=== PATIENT | female | born 1950 | race Caucasian/White ===

== ENCOUNTER 2020-05-20 00:44 | Outpatient (CLI) | payer MEDICARE, SELFPAY ==
[2020-05-20 18:34] LABS: SARS-CoV-2 RNA PCR Negative
== END 2020-05-20 00:45 | disposition home or self-care (01) ==
PROVIDERS: Visit Provider Internal Medicine Gastroenterology
DX: Z01.812 Encounter for preprocedural laboratory examination (principal); Z20.828 Contact with and (suspected) exposure to other viral communicable diseases
CPT/HCPCS: 87635; C9803; U0003

== ENCOUNTER → 2020-05-20 08:46 | Outpatient (CLI) | payer MEDICARE, SELFPAY ==
--- NOTE | ~2020-05-20 | US_ITS ---
EXAMINATION: US right upper quadrant DATE: 05/20/2020 09:05 INDICATION: Abnormal liver function tests. TECHNIQUE: Multiple grayscale and Doppler ultrasound images of the abdomen were obtained. COMPARISON: None FINDINGS: The visualized portions of the head, body, and tail of the pancreas are normal. There is a 1.6 cm cyst in the liver. No liver surface nodularity. There is normal flow in main portal vein. The gallbladder is normal in size. No gallstones or gallbladder wall thickening. There was no sonographic [place] sign. The common duct is normal and measures 5 mm. IMPRESSION: 1. No etiology for abnormal liver function tests. Reviewed, dictated and finalized at location B.
== END ==
PROVIDERS: PCP Internal Medicine; Visit Provider Internal Medicine
DX: R74.8 Abnormal levels of other serum enzymes (principal)
CPT/HCPCS: 76705

== ENCOUNTER 2020-05-23 01:25 | Day surgery (SDC) | payer MEDICARE, SELFPAY ==
[2020-05-20 07:32] VITALS: BMI 30.2
--- NOTE | 2020-05-23 06:51 | WPDANESEPPF ---
Anes - Initial Pre Proc Eval Procedure: Operation Date: 05/23/20 08:30 Proposed Procedures p Screening Colonoscopy - Tin Sanz MD Date/Time: 05/23/20 06:51 Surgeon: Tin Sanz MD Pre Op Diagnosis: neoplasm screening Patient Data Age: 69 Gender: F Height: 1.73 m Weight: 90 kg Allergies Allergy/AdvReac Type Severity Reaction Status Date / Time No Known Allergies Allergy Unknown Verified 05/23/20 07:33 Home Medications Medication Instructions Recorded Confirmed Type atorvastatin 10 mg PO DAILY 05/20/20 05/23/20 History hydrochlorothiazide 12.5 mg PO DAILY 05/20/20 05/23/20 History losartan 25 mg PO DAILY 05/20/20 05/23/20 History Patient hx anesthesia problems: none Family hx anesthesia problems: none [facility] Past Medical History Medical History (Updated 05/23/20 @ 07:57 by Tin Sanz MD) GERD (gastroesophageal reflux disease) HTN (hypertension) Hypercholesterolemia Obesity Surgical History Surgical History (Updated 05/23/20 @ 07:57 by Tin Sanz MD) History of appendectomy Status post bunionectomy Status post total hysterectomy and bilateral salpingo-oophorectomy Anes - Eval Final PreProcedure Day of Procedure 05/23/20 06:51 Patient weight: obese Heart: regular rate and rhythm Lungs: clear to auscultation and normal air movement Airway: Mallampati scale class II Neurological: alert and oriented Last oral intake: >/= 8 hours ASA classification: III Emergent: no Anesthetic plan: proceed Anesthesia type and monitoring: general GIVS Informed Consent: The patient's anesthetic plan and its attendant risks and benefits were discussed with the patient/family/POA. Questions were solicited and answers provided to the satisfaction of the patient/family/POA.
[2020-05-23 07:36] VITALS: BP 153/73; PULSE 83; RESP 18; TEMP 36.5; O2SAT 99
[2020-05-23] MEDS: LACTATED RINGERS 1,000 ML 150 ML IV CONT (07:53)
--- NOTE | 2020-05-23 07:55 | P.HP_ITS ---
History of Present Illness History of Present Illness Consent: Risks, benefits, and alternatives have been discussed and questions answered. Patient agrees to proceed with procedure. Chief complaint: neoplasm screening Narrative: Grecia Albert is a 69 year old W female referred for screening colonoscopy secondary positive colo guard test. Patient had a colonoscopy over 10 years ago which was negative at that time. Patient is asymptomatic and there is no family history of colon polyps or colon cancer. [facility] Past Medical History Medical History (Updated 05/23/20 @ 07:57 by Tin Sanz MD) GERD (gastroesophageal reflux disease) HTN (hypertension) Hypercholesterolemia Obesity Surgical History Surgical History (Updated 05/23/20 @ 07:57 by Tin Sanz MD) History of appendectomy Status post bunionectomy Status post total hysterectomy and bilateral salpingo-oophorectomy Meds Home Medications and Allergies Home Medications Medication Instructions Recorded Confirmed Type atorvastatin 10 mg PO DAILY 05/20/20 05/23/20 History hydrochlorothiazide 12.5 mg PO DAILY 05/20/20 05/23/20 History losartan 25 mg PO DAILY 05/20/20 05/23/20 History Allergies Allergy/AdvReac Type Severity Reaction Status Date / Time No Known Allergies Allergy Unknown Verified 05/23/20 07:33 Vital Signs Vital Signs - 24 hr 05/23/20 07:36 Temperature 36.5 C Pulse Rate 83 Respiratory Rate 18 Blood Pressure 153/73 H Pulse Oximetry 99 Exam 2 Const: Orientation/consciousness: patient oriented x3 Resp: Auscultation: clear to auscultation bilaterally Cardio: Rate: regular rate Rhythm: regular rhythm Heart sounds: no murmurs GI: GI Palp: Yes Soft to palpation, No Tenderness to palpation present (GI), Yes No hepatosplenomegaly present and No Palpable mass present Auscultation: normal bowel sounds Neuro: General: patient oriented x3 and no focal motor deficits Extrem: General: no pedal edema Assessment and Plan Additional Plan colonoscopy secondary positive colo guard test
[2020-05-23 08:57] VITALS: BP 100/69; PULSE 67; RESP 18; O2SAT 96
[2020-05-23 09:07] VITALS: BP 135/61; PULSE 63; RESP 20; O2SAT 98
[2020-05-23 09:17] VITALS: BP 128/75; RESP 18; O2SAT 99
== END 2020-05-23 09:48 | disposition home or self-care (01) ==
PROVIDERS: PCP Internal Medicine; Visit Provider Internal Medicine Gastroenterology
PROC: 0DJD8ZZ Inspection of Lower Intestinal Tract, Via Natural or Artificial Opening Endoscopic (ICD-10-PCS; CPT 45378; principal; 2020-05-23 08:30)
DX: D12.5 Benign neoplasm of sigmoid colon (principal); D17.5 Benign lipomatous neoplasm of intra-abdominal organs; I10 Essential (primary) hypertension; E78.5 Hyperlipidemia, unspecified; K21.9 Gastro-esophageal reflux disease without esophagitis; E66.9 Obesity, unspecified; Z68.31 Body mass index [BMI] 31.0-31.9, adult; Z79.899 Other long term (current) drug therapy
CPT/HCPCS: 45385; 45380; 88305; J2704; J7120

== ENCOUNTER → 2020-11-26 05:52 | Outpatient (CLI) | payer MEDICARE, SELFPAY ==
[2020-11-26 19:11] LABS: SARS-CoV-2 RNA PCR Negative
== END ==
PROVIDERS: PCP Internal Medicine; Visit Provider Internal Medicine Gastroenterology
DX: Z01.812 Encounter for preprocedural laboratory examination (principal); Z20.822 Contact with and (suspected) exposure to COVID-19
CPT/HCPCS: C9803; U0003; U0005

== ENCOUNTER 2020-11-30 01:17 | Day surgery (SDC) | payer MEDICARE, SELFPAY ==
[2020-11-17 12:56] VITALS: BMI 30.2
[2020-11-30 07:12] VITALS: BP 151/85; PULSE 82; RESP 18; TEMP 36.1; O2SAT 96; BMI 33.1
[2020-11-30] MEDS: LACTATED RINGERS 1,000 ML 150 ML IV CONT (07:26)
--- NOTE | 2020-11-30 08:14 | WPDANESEPPF ---
Anes - Initial Pre Proc Eval Procedure: Operation Date: 11/30/20 08:30 Proposed Procedures p Esophagogastroduodenoscopy - Boris Go MD Date/Time: 11/30/20 08:14 Surgeon: Boris Go MD Pre Op Diagnosis: Gerd Patient Data Age: 70 Gender: F Height: 5 ft 8 in Weight: 98.8 kg Last Vital Signs Temp 97 F L 11/30/20 07:12 Pulse 82 11/30/20 07:12 Resp 18 11/30/20 07:12 BP 151/85 H 11/30/20 07:12 Pulse Ox 96 11/30/20 07:12 Allergies Allergy/AdvReac Type Severity Reaction Status Date / Time No Known Allergies Allergy Unknown Verified 11/30/20 07:11 Home Medications Medication Instructions Recorded Confirmed Type atorvastatin 10 mg PO DAILY 05/20/20 11/17/20 History hydrochlorothiazide 12.5 mg PO DAILY 05/20/20 11/17/20 History Adults Multivitamin 1 tab-cap PO DAILY 11/17/20 11/17/20 History losartan 25 mg PO DAILY 11/17/20 11/17/20 History omeprazole 20 mg PO Q48H 11/17/20 11/17/20 History Patient hx anesthesia problems: none Family hx anesthesia problems: none PMFSH Past Medical History Medical History (Updated 05/23/20 @ 07:57 by Tin SanzMD) GERD (gastroesophageal reflux disease) HTN (hypertension) Hypercholesterolemia Obesity Surgical History Surgical History (Updated 05/23/20 @ 07:57 by Tin SanzMD) History of appendectomy Status post bunionectomy Status post total hysterectomy and bilateral salpingo-oophorectomy Social History Social History Smoking status: Never smoker Alcohol intake: current Substance use: never Substance use type: does not use Living arrangements: with family Spiritual care concerns: No Anes - Eval Final PreProcedure Day of Procedure 11/30/20 08:14 Patient weight: obese Heart: regular rate and rhythm Lungs: clear to auscultation Airway: Mallampati scale Last oral intake: >/= 8 hours ASA classification: III Emergent: no Anesthetic plan: proceed Anesthesia type and monitoring: general GIVS and standard monitoring Informed Consent: The patient's anesthetic plan and its attendant risks and benefits were discussed with the patient/family/POA. Questions were solicited and answers provided to the satisfaction of the patient/family/POA.
--- NOTE | 2020-11-30 08:33 | PM.HPGS ---
History of Present Illness History of Present Illness Consent: Risks, benefits, and alternatives have been discussed and questions answered. Patient agrees to proceed with procedure. Chief complaint: Gerd Narrative: Grecia Albert is a 70 year old female with gerd which is controlled with omeprazole, had egd but years ago Review of Systems Constitutional: Constitutional: Denies headache(s) and Denies weakness Eyes: Eyes: Denies blurry vision ENT: Reports Normal hearing present, Denies headache(s) and Denies neck pain Cardiovascular: Cardiovascular: Denies chest pain and Denies dyspnea Respiratory: Respiratory: Denies dyspnea Gastrointestinal: Gastrointestinal: Reports no additional gastrointestinal complaints Genitourinary: Genitourinary: Denies dysuria Musculoskeletal: Musculoskeletal: Denies neck pain Integumentary/Breasts: Skin/Breast: Denies dry skin Neurologic: Reports Normal hearing present, Denies headache(s) and Denies weakness Psychiatric: Psychiatric: Denies anxiety Endocrine: Endocrine: Denies change in body appearance Hematologic/Lymphatic: Hematologic/Lymphatic: Denies easy bleeding Allergic/Immunologic: Allergic/Immunologic: Denies urticaria PMFSH Past Medical History Medical History (Updated 11/30/20 @ 08:34 by Boris Go MD) GERD (gastroesophageal reflux disease) HTN (hypertension) Hypercholesterolemia Obesity Surgical History Surgical History (Updated 05/23/20 @ 07:57 by Tin SanzMD) History of appendectomy Status post bunionectomy Status post total hysterectomy and bilateral salpingo-oophorectomy Social History Social History Smoking status: Never smoker Alcohol intake: current Substance use: never Substance use type: does not use Living arrangements: with family Spiritual care concerns: No Meds Home Medications and Allergies Home Medications Medication Instructions Recorded Confirmed Type atorvastatin 10 mg PO DAILY 05/20/20 11/17/20 History hydrochlorothiazide 12.5 mg PO DAILY 05/20/20 11/17/20 History Adults Multivitamin 1 tab-cap PO DAILY 11/17/20 11/17/20 History losartan 25 mg PO DAILY 11/17/20 11/17/20 History omeprazole 20 mg PO Q48H 11/17/20 11/17/20 History Allergies Allergy/AdvReac Type Severity Reaction Status Date / Time No Known Allergies Allergy Unknown Verified 11/30/20 07:11 Vital Signs Vital Signs - 24 hr 11/30/20 07:12 Temperature 97 F L Pulse Rate 82 Respiratory Rate 18 Blood Pressure 151/85 H Pulse Oximetry 96 Exam Const: General: comfortable and no acute distress HENMT: General nose exam: Normal nares present Eyes: General: appearance normal, both eyes and all related structures Neck: Neck: no JVD Resp: Auscultation: clear to auscultation bilaterally Cardio: Rate: regular rate Rhythm: regular rhythm GI: Inspection: non-distended GI Palp: Yes Soft to palpation Skin: General skin exam: normal color Neuro: General: gait normal Speech: normal speech Extrem: General: normal to inspection Psych: Mental Status: mental status grossly normal Assessment and Plan Assessment and plan (1) GERD (gastroesophageal reflux disease): Code(s): K21.9 - Gastro-esophageal reflux disease without esophagitis Status: Acute Assessment and Plan: proceed with egd and bx
[2020-11-30] MEDS: BENZOCAINE (*SP) 60 ML SPRAY CAN (HURRICAINE) 1 SPRAY MUCOUS MEM (08:37)
[2020-11-30 08:47] VITALS: BP 134/78; PULSE 77; RESP 20; O2SAT 93
[2020-11-30 08:57] VITALS: BP 127/75; PULSE 74; RESP 20; O2SAT 94
[2020-11-30 09:07] VITALS: BP 141/80; PULSE 78; RESP 20; O2SAT 96
== END 2020-11-30 09:22 | disposition home or self-care (01) ==
PROVIDERS: PCP Internal Medicine; Visit Provider Internal Medicine Gastroenterology
PROC: 0DJ08ZZ Inspection of Upper Intestinal Tract, Via Natural or Artificial Opening Endoscopic (ICD-10-PCS; CPT 43235; principal; 2020-11-30 08:30)
DX: K21.9 Gastro-esophageal reflux disease without esophagitis (principal); K44.9 Diaphragmatic hernia without obstruction or gangrene; K31.7 Polyp of stomach and duodenum; I10 Essential (primary) hypertension; E78.00 Pure hypercholesterolemia, unspecified; E66.9 Obesity, unspecified; Z90.49 Acquired absence of other specified parts of digestive tract; Z90.710 Acquired absence of both cervix and uterus
CPT/HCPCS: 43239; 88305; C9803; J2704; J7120; U0003; U0005

== ENCOUNTER 2022-08-24 22:09 | Emergency (ER) | payer MEDICARE, SELFPAY ==
--- NOTE | ~2022-08-24 | CT_ITS ---
EXAMINATION: CT abdomen pelvis wo con DATE: 08/24/2022 22:57 INDICATION: Left flank pain TECHNIQUE: Computed tomography (CT) of the abdomen and pelvis was performed without intravenous contr ast. The dose-length product (DLP) was 1031.37 mGy-cm. Automated exposure control and iterative recon struction technique were employed. COMPARISON: None FINDINGS: Minimal dependent atelectasis is present in the lung bases. The heart size is normal. A 1.8 cm area of hypoattenuation adjacent to the gallbladder fossa likely represents focal fatty infiltrat ion of the liver. The spleen, pancreas, gallbladder, and adrenal glands are normal. The right kidney is unremarkable. A 12 mm hyperattenuating lesion is present in the left kidney upper pole. There is h yperattenuating material in an adjacent upper pole calyx of the left kidney and the in left renal pel vis. There is a 1.5 cm cyst of the left kidney. There also appears to be hyperattenuating material in the distal left ureter. No pathologically enlarged abdominal or pelvic lymph nodes are identified. T here is no free intraperitoneal gas or evidence of bowel obstruction. IMPRESSION: 1. 12 mm hyperattenuating lesion in the left kidney upper pole with hyperattenuation in and adjacent calyx of the left kidney, in the left renal pelvis, and in the distal left ureter. Finding could refl ect small renal neoplasm with hemorrhage. Further evaluation with contrast-enhanced CT or MRI is tori mmended. Reviewed, dictated and finalized at location F. E [employer]NAGER IMPRESSION: 1. 12 mm hyperattenuating lesion in the left kidney upper pole with hyperattenu ation in and adjacent calyx of the left kidney, in the left renal pelvis, and i n the distal left ureter. Finding could reflect small renal neoplasm with hemor rhage. Further evaluation with contrast-enhanced CT or MRI is recommended.
--- NOTE | ~2022-08-24 | CT_ITS ---
EXAMINATION: CT abdomen pelvis wo/w con DATE: 08/25/2022 00:21 INDICATION: Indeterminate lesion at the upper pole of the left kidney TECHNIQUE: Computed tomography (CT) of the abdomen and pelvis was performed without and with 100 mL O mnipaque-350 intravenous contrast. Automated exposure control and iterative reconstruction technique were employed. The dose-length product was 2289.51 mGy-cm. COMPARISON: 08/24/2022 FINDINGS: Mild atelectasis at the bilateral lower lungs. Heart size is normal. No pericardial or pleural effusi on. Small sliding-type hiatal hernia. Diffuse hepatic steatosis with focal sparing along the gallblad malena fossa. 1.7 cm low attenuation cyst in segment 4B of the liver. Gallbladder, pancreas, spleen, rig ht kidney and bilateral adrenal glands are normal. 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 1.4 cm nonenhancing exophytic cyst at the lower pole of the left kid jagruti. There is mild left hydroureteronephrosis with mildly delayed left nephrogram. No urolithiasis. T here is nonenhancing high attenuation material in the left renal collecting system and renal pelvis m ost likely representing clot. Additional high attenuation material within the distalmost left ureter which is too small to assess for enhancement which could represent additional clot although enhancing neoplasm cannot be excluded. There are few sigmoid diverticula without adjacent inflammatory strandi ng to suggest diverticulitis. The appendix is not visualized. No pericecal inflammatory change to sug gest acute appendicitis. No bowel obstruction. Small fat-containing umbilical hernia. Bladder is norm al. The uterus is not identified and has likely been surgically resected. No free intraperitoneal gas or fluid. No pathologically enlarged abdominal or pelvic lymphadenopathy. Mild scattered degenerativ e skeletal changes. IMPRESSION: 1. Mild left hydroureteronephrosis without urolithiasis. High attenuation nonenhancing material in th e left renal collecting system consistent with clot. Additional high attenuation material at the dist al left ureter 2 small to assess for enhancement which could represent additional clot or potentially obstructing neoplasm. Correlate with urinalysis and consider urology consultation for cystoscopy and ureteroscopy. Reviewed, dictated and finalized at location A. TAMPER IMPRESSION: 1. Mild left hydroureteronephrosis without urolithiasis. High attenuation nonen hancing material in the left renal collecting system consistent with clot. Arron tional high attenuation material at the distal left ureter 2 small to assess fo r enhancement which could represent additional clot or potentially obstructing neoplasm. Correlate with urinalysis and consider urology consultation for cysto scopy and ureteroscopy.
[2022-08-24 22:10] VITALS: BP 155/75; PULSE 95; RESP 16; TEMP 36.2; O2SAT 95
[2022-08-24 22:33] LABS: Basophils Absolute Auto 0.1 K/mm3 (0.0-0.1); Basophils Percent Auto 0.5 % (0.2-1.2); Eosinophils Absolute Auto 0.2 K/mm3 (0-0.3); Eosinophils Percent Auto 1.4 % (0-4.4); Hematocrit 37.5 % (37.0-47.0); Hemoglobin 12.3 g/dL (12.0-15.0); Immature Granulocyte Absolute 0.05 K/mm3 (0.00-0.031); Immature Granulocyte Percent A 0.4 % (0-0.5); Lymphocytes Absolute Auto 1.45 K/mm3 (0.9-3.2); Lymphocytes Percent Auto 11.5 % (18.3-44.2); Mean Corpuscular HGB Conc 32.8 g/dl (32-36); Mean Corpuscular Hemoglobin 31.6 pg (26-34); Mean Corpuscular Volume 96.4 fl (80-100); Mean Platelet Volume 11.5 fl (7.4-10.4); Monocytes Percent Auto 7.9 % (2.6-8.5); Neutrophils Absolute Auto 9.9 K/mm3 (1.3-6.7); Neutrophils Percent Auto 78.3 % (45.5-73.1); Platelet Count Result 216 k/mm3 (150-375); Red Blood Count 3.89 M/mm3 (4.2-5.4); Red Cell Distribution Width 13.1 % (11.5-14.5); White Blood Count 12.6 K/mm3 (4.5-10.0)
[2022-08-24 22:35] VITALS: BP 149/70; PULSE 81; O2SAT 100
[2022-08-24 22:36] VITALS: BP 149/70; PULSE 82; RESP 16; TEMP 36.9; O2SAT 97
[2022-08-24 22:47] LABS: Alanine Aminotransferase 40 U/L (6-35); Albumin Level 4.7 g/dL (3.5-5.1); Alkaline Phosphatase 92 U/L (38-126); Anion Gap 16 mmol/L (8-16); Aspartate Amino Transferase 40 U/L (14-36); Bilirubin,Total 0.4 mg/dL (0.2-1.3); Blood Urea Nitrogen 27 mg/dL (7-17); Calcium 9.6 mg/dL (8.4-10.2); Carbon Dioxide 24 mmol/L (22-30); Chloride 100 mmol/L (98-107); Estimated CRCL calculation 49 ml/min; Estimated Glomerular Filt Rate 49; Glucose 167 mg/dL (65-110); Sodium 140 mmol/L (137-145)
[2022-08-24 22:58] LABS: RBC Urine >75 /hpf (0-2); Squamous Epithelial Cell Urine Few /hpf (Few); WBC Urine 16-20 /hpf
[2022-08-24] MEDS: MORPHINE SULFATE (*CRX) 4 MG/ML INJ IV PUSH (23:01)
[2022-08-24] MEDS: SODIUM CHLORIDE 0.9% IV 1,000 ML 999 ML IV CONT (23:01)
[2022-08-24] MEDS: ONDANSETRON INJ 4 MG/2 ML VIAL IV PUSH (23:01)
[2022-08-24 23:04] LABS: Appearance Urine Clear (Clear); Bilirubin Urine Negative (Negative); Blood Urine 3+ (Negative); Glucose Urine UA Negative (Negative); Ketones Urine Negative (Negative); Leukocyte Esterase Ur Negative LEU/UL (Negative); Nitrate Urine Negative (Negative); Protein Urine 1+ mg/dL (Negative); Specific Grav Ur 1.015 (1.001-1.035); Urobilinogen Urine 0.2 mg/dL (<2.0)
[2022-08-24 23:12] LABS: Add Urine Microscopic? YES; Color Urine Light Red (Yellow)
[2022-08-24 23:17] LABS: INR 1.1; Prothrombin Time 13.9 Seconds (11.1-14.7)
[2022-08-24 23:18] LABS: Partial Thromboplastin Time 29.5 SECONDS (22.3-36.8)
--- NOTE | 2022-08-24 23:22 | ED.GENADULT ---
HPI - General Adult General Chief complaint: Urogenital-Female Stated complaint: blood in urine Time Seen by Provider: 08/24/22 22:36 History of Present Illness HPI narrative: Patient is a 72-year-old female presents with a chief complaint of left flank pain dysuria. Patient reports that yesterday she started noticing loss of blood in the urine and is also noticed some small clots in the urine. Patient reports to follow primary care providers regarding culture and also started her on Bactrim. Patient states that the pain is aching-like pain reports is not improved by anything nor is it worsened by anything. Patient reports that she is on Eliquis for atrial fibrillation Related Data Home Medications Medication Instructions Recorded Confirmed atorvastatin 10 mg tablet 10 mg PO DAILY 05/20/20 11/17/20 hydrochlorothiazide 12.5 mg capsule 12.5 mg PO DAILY 05/20/20 11/17/20 Adults Multivitamin 1 tab-cap PO DAILY 11/17/20 11/17/20 losartan 25 mg tablet 25 mg PO DAILY 11/17/20 11/17/20 omeprazole 20 mg capsule,delayed 20 mg PO Q48H 11/17/20 11/17/20 release Allergies Allergy/AdvReac Type Severity Reaction Status Date / Time No Known Allergies Allergy Unknown Verified 08/24/22 22:32 Review of Systems Review of Systems: A 10 system review of systems was completed on the patient and is negative except for what is stated in the HPI. Nursing and ancillary documentation was reviewed. [facility] Past Medical History Medical History GERD (gastroesophageal reflux disease) HTN (hypertension) Hypercholesterolemia Obesity Surgical History Surgical History History of appendectomy Status post bunionectomy Status post total hysterectomy and bilateral salpingo-oophorectomy Social History Social History Smoking status: Never smoker Alcohol intake: current Substance use: never Substance use type: does not use Spiritual care concerns: No Exam Narrative: GENERAL: Well-appearing, well-nourished, and in no acute distress. HEAD: Normocephalic, atraumatic. EYES: PERRLA and EOMI. ENT: Nares clear, no rhinorrhea or epistaxis. Mucous membranes moist. NECK: Supple. CHEST: Clear to auscultation. No respiratory distress. HEART: Regular rate and rhythm. No murmur heard. Normal peripheral pulses. ABDOMEN: Soft, nontender, nondistended, normal active bowel sounds. EXTREMITIES: Normal range of motion. No edema. SKIN: Warm, dry, no rash. NEURO: No focal deficits. Alert and oriented x3. PSYCH: Normal mood and affect. Course Course Emergency Course: CT scan showed evidence of a lesion in the left upper pole of the kidney. Vital Signs Vital signs: Vital Signs Temperature 36.2 C L 08/24/22 22:10 Pulse Rate 95 08/24/22 22:10 Respiratory Rate 16 08/24/22 22:10 Blood Pressure 155/75 H 08/24/22 22:10 Pulse Oximetry 95 08/24/22 22:10 Oxygen Delivery Room Air 08/24/22 22:10 Temperature 36.9 C 08/24/22 22:36 Pulse Rate 82 08/24/22 22:36 Respiratory Rate 16 08/24/22 22:36 Blood Pressure 149/70 H 08/24/22 22:36 Pulse Oximetry 97 08/24/22 22:36 Oxygen Delivery Room Air 08/24/22 22:10 Medical Decision Making Vital Signs Vital Signs: Vital Signs Temperature 36.2 C L 08/24/22 22:10 Pulse Rate 95 08/24/22 22:10 Respiratory Rate 16 08/24/22 22:10 Blood Pressure 155/75 H 08/24/22 22:10 Pulse Oximetry 95 08/24/22 22:10 Oxygen Delivery Room Air 08/24/22 22:10 Temperature 36.9 C 08/24/22 22:36 Pulse Rate 82 08/24/22 22:36 Respiratory Rate 16 08/24/22 22:36 Blood Pressure 149/70 H 08/24/22 22:36 Pulse Oximetry 97 08/24/22 22:36 Oxygen Delivery Room Air 08/24/22 22:10 Lab Data Result diagrams: 08/24/22 22:27 08/24/22 22:27 Labs:
[2022-08-25] MEDS: HYDROmorphone HCL INJ (*CRX) 1 MG/ML SYR IV PUSH (01:15)
[2022-08-25] MEDS: ONDANSETRON INJ 4 MG/2 ML VIAL IV PUSH ×2 (01:15→03:09)
[2022-08-25 01:30] VITALS: BP 127/59; PULSE 75; O2SAT 96
[2022-08-25 03:13] VITALS: BP 138/76; PULSE 73; RESP 178; TEMP 36.7; O2SAT 98
== END 2022-08-25 03:21 | disposition home or self-care (01) ==
PROVIDERS: Emergency Provider Emergency Medicine; PCP Internal Medicine
DX: N39.0 Urinary tract infection, site not specified (principal); M54.9 Dorsalgia, unspecified; R31.9 Hematuria, unspecified; I10 Essential (primary) hypertension
CPT/HCPCS: 36415; 74176; 74178; 80053; 81001; 85025; 85610; 85730; 87086; 96361; 96374; 96375; 96376; 99284; J1170; J2270; J2405; J7030; Q9967

== ENCOUNTER 2022-08-25 11:14 | Emergency (ER) | payer MEDICARE, SELFPAY ==
[2022-08-25 11:16] VITALS: BP 140/81; PULSE 89; RESP 16; TEMP 36.5; O2SAT 100
[2022-08-25 12:07] LABS: Basophils Percent Auto 0.2 % (0.2-1.2); Hematocrit 38.4 % (37.0-47.0); Hemoglobin 12.8 g/dL (12.0-15.0); Immature Granulocyte Absolute 0.05 K/mm3 (0.00-0.031); Immature Granulocyte Percent A 0.4 % (0-0.5); Lymphocytes Absolute Auto 0.75 K/mm3 (0.9-3.2); Lymphocytes Percent Auto 5.6 % (18.3-44.2); Mean Corpuscular HGB Conc 33.3 g/dl (32-36); Mean Corpuscular Hemoglobin 31.8 pg (26-34); Mean Corpuscular Volume 95.5 fl (80-100); Mean Platelet Volume 11.6 fl (7.4-10.4); Monocytes Percent Auto 7.5 % (2.6-8.5); Neutrophils Absolute Auto 11.6 K/mm3 (1.3-6.7); Neutrophils Percent Auto 86.3 % (45.5-73.1); Platelet Count Result 210 k/mm3 (150-375); Red Blood Count 4.02 M/mm3 (4.2-5.4); Red Cell Distribution Width 13.2 % (11.5-14.5); White Blood Count 13.4 K/mm3 (4.5-10.0)
[2022-08-25 12:19] LABS: Alanine Aminotransferase 39 U/L (6-35); Albumin Level 4.6 g/dL (3.5-5.1); Alkaline Phosphatase 110 U/L (38-126); Anion Gap 11 mmol/L (8-16); Aspartate Amino Transferase 35 U/L (14-36); Bilirubin,Total 0.6 mg/dL (0.2-1.3); Blood Urea Nitrogen 23 mg/dL (7-17); Carbon Dioxide 23 mmol/L (22-30); Chloride 104 mmol/L (98-107); Estimated Glomerular Filt Rate 44; Glucose 139 mg/dL (65-110); Sodium 138 mmol/L (137-145)
--- NOTE | 2022-08-25 12:19 | ED.FEMALEGU ---
HPI - Female Genitourinary General Chief complaint: Urogenital-Female Stated complaint: kidney infection Time Seen by Provider: 08/25/22 11:53 History of Present Illness HPI Narrative: 72-year-old female with history of hypertension high cholesterol presented to the emergency department for evaluation of worsening flank pain. Patient was diagnosed with a urinary tract infection on Saturday and was started on Bactrim. Patient presented to the emergency department on Saturday night and was found to have a clot in her ureter and in her kidney. Patient was sent home to continue her Zofran and was also provided [place] for pain control. Today the return to the emergency department complaining of worsening pain. Patient states she was not able to fill her [place] and Zofran prescription. Patient denies any personal history of kidney stones. Patient does have history of paroxysmal atrial fibrillation and had been started on Xarelto. The Xarelto was just stopped yesterday. Related Data Home Medications Medication Instructions Recorded Confirmed atorvastatin 10 mg tablet 10 mg PO DAILY 05/20/20 11/17/20 hydrochlorothiazide 12.5 mg capsule 12.5 mg PO DAILY 05/20/20 11/17/20 Adults Multivitamin 1 tab-cap PO DAILY 11/17/20 11/17/20 losartan 25 mg tablet 25 mg PO DAILY 11/17/20 11/17/20 omeprazole 20 mg capsule,delayed 20 mg PO Q48H 11/17/20 11/17/20 release Allergies Allergy/AdvReac Type Severity Reaction Status Date / Time No Known Allergies Allergy Unknown Verified 08/24/22 22:32 Review of Systems Review of Systems: CONSTITUTIONAL: Denies fever, chills, or sweats. EYES: Denies visual changes, redness, or discharge. ENT: Denies rhinorrhea, congestion, sore throat, or otalgia. CARDIOVASCULAR: Denies chest pain, palpitations, or edema. RESPIRATORY: Denies cough or dyspnea. GASTROINTESTINAL: Left flank pain GENITOURINARY: Hematuria SKIN: Denies rash or itching. MUSCULOSKELETAL: Denies back pain, joint pain, or myalgia. NEUROLOGIC: Denies headache, numbness, or weakness. [facility] Past Medical History Medical History (Updated 08/25/22 @ 14:07 by Ethan Bravo MD) GERD (gastroesophageal reflux disease) HTN (hypertension) Hydronephrosis Hypercholesterolemia Obesity Surgical History Surgical History History of appendectomy Status post bunionectomy Status post total hysterectomy and bilateral salpingo-oophorectomy Social History Social History Smoking status: Never smoker Alcohol intake: current Substance use: never Substance use type: does not use Spiritual care concerns: No Exam Narrative: APPEARANCE: Well appearing, no pain, no distress, well-nourished. HEAD: normocephalic, atraumatic. EYES: PERRLA/EOMI, conjunctivae clear. NOSE: Normal no drainage NECK: Supple. No adenopathy, no masses. RESPIRATORY: Airway patent, respirations nonlabored. Clear to auscultation bilaterally, no rales, rhonchi, wheezing. CARDIOVASCULAR: Regular rate and rhythm without murmurs rubs or gallops. ABDOMINAL: Soft, mild left-sided tenderness to palpation. MUSCULOSKELETAL: Moves all extremities. Strength/ROM intact, No edema, No calf tenderness. NEURO: Alert. Cranial nerves II through XII intact. Grossly intact SKIN: Warm, dry. Normal Color Course Course Emergency Course: Dr. Hanna was consulted due to the CT read. He was already aware of the patient, believe he was consulted last night. He states that if the patient does feel improved she is okay to have outpatient follow-up and will ultimately need a scope at that point. Dr. Flores did come see the patient in the emergency department. Patient did feel improved with treatment. Patient was comfortable to plan for discharge and close follow-up. Vital Signs Vital signs: Vital Signs Temperature 97.7 F 08/25/22 11:16 Pulse Rate 89 08/25/22 11
[2022-08-25 13:29] LABS: INR 1.1; Partial Thromboplastin Time 24.8 SECONDS (22.3-36.8); Prothrombin Time 13.5 Seconds (11.1-14.7)
--- NOTE | 2022-08-25 13:45 | WPDURCON ---
Assessment and Plan Assessment and plan (1) Hematuria: Code(s): R31.9 - Hematuria, unspecified Status: Acute (2) Acute UTI: Code(s): N39.0 - Urinary tract infection, site not specified Status: Acute (3) Acute flank pain: Code(s): R10.9 - Unspecified abdominal pain Status: Acute (4) Hydronephrosis: Code(s): N13.30 - Unspecified hydronephrosis Status: Acute Plan 72-year-old lady on anticoagulation with hematuria, CT scan revealing left collecting system clot. -patient currently asymptomatic. She will be planned to discharge home. Encouraged fluid hydration. If patient returns to the emergency department due to discomfort, would recommend cystoscopy left retrograde pyelogram and left ureteral stent insertion to alleviate her discomfort. -complete course of antibiotics. Await urine culture results -patient will need cystoscopy and left retrograde pyelogram/left ureteroscopy to rule out left collecting system malignancy. This can be done as an outpatient as long as patient continues to feel. Urology Consult Note HPI Date Seen: 08/25/22 Requesting Physician: Here Primary Care Provider: Luis Wade, Consult Narrative Narrative: Grecia Albert is a 72 year old female with history of AFib on Xarelto who presented to her primary care physician on with hematuria and was started on antibiotics (Bactrim). The patient then had symptoms of pain on Saturday night which prompted emergency department visit where she was noted to have blood in the left collecting system. The patient was given a prescription for narcotic pain medicine, however did not feel prescription and re-presented to the ER today. Repeat CT scan imaging with contrast revealed clot in the left closed system with [id number] hydronephrosis. The patient had immediate improvement of pain with pain medication in the ER. She now feels well. Patient states she has a strong family history of nephrolithiasis. She denies family history of urinary malignancy. She denies personal history of stone disease. She is a nonsmoker. [facility] Past Medical History Medical History (Updated 08/25/22 @ 13:48 by Dereck Hanna MD) GERD (gastroesophageal reflux disease) HTN (hypertension) Hydronephrosis Hypercholesterolemia Obesity Surgical History Surgical History History of appendectomy Status post bunionectomy Status post total hysterectomy and bilateral salpingo-oophorectomy Social History Social History Smoking status: Never smoker Alcohol intake: current Substance use: never Substance use type: does not use Spiritual care concerns: No Meds Home Medications and Allergies Home Medications Medication Instructions Recorded Confirmed Type atorvastatin 10 mg tablet 10 mg PO DAILY 05/20/20 11/17/20 History hydrochlorothiazide 12.5 mg capsule 12.5 mg PO DAILY 05/20/20 11/17/20 History Adults Multivitamin 1 tab-cap PO DAILY 11/17/20 11/17/20 History losartan 25 mg tablet 25 mg PO DAILY 11/17/20 11/17/20 History omeprazole 20 mg capsule,delayed 20 mg PO Q48H 11/17/20 11/17/20 History release hydrocodone 5 mg-acetaminophen 325 1 tablet PO Q6H PRN pain 3 days 08/25/22 Rx mg tablet #12 tabs ondansetron 4 mg disintegrating 4 mg PO Q8H PRN nausea and 08/25/22 Rx tablet vomiting #10 tabs Allergies Allergy/AdvReac Type Severity Reaction Status Date / Time No Known Allergies Allergy Unknown Verified 08/24/22 22:32 Vital Signs Vital Signs - 24 hr 08/25/22 11:16 Temperature 36.5 C Pulse Rate 89 Respiratory Rate 16 Blood Pressure 140/81 Pulse Oximetry 100 Oxygen Delivery Room Air Results Labs CBC & Chem 7: 08/25/22 12:02 08/25/22 12:02 Labs: Short CBC 08/25/22 Range/Units 12:02 WBC 13.4 H (4.5-
[2022-08-25] MEDS: METOCLOPRAMIDE HCL INJ 10 MG/2 ML VIAL IV PUSH (13:57)
[2022-08-25] MEDS: HYDROmorphone HCL INJ (*CRX) 1 MG/ML SYR 0.5 MG IV PUSH (13:57)
[2022-08-25] MEDS: ONDANSETRON INJ 4 MG/2 ML VIAL IV PUSH (13:57)
== END 2022-08-25 14:30 | disposition home or self-care (01) ==
PROVIDERS: Emergency Provider Emergency Medicine; PCP Internal Medicine
DX: N39.0 Urinary tract infection, site not specified (principal); R31.9 Hematuria, unspecified; N13.30 Unspecified hydronephrosis; I10 Essential (primary) hypertension; E78.00 Pure hypercholesterolemia, unspecified; K21.9 Gastro-esophageal reflux disease without esophagitis; E66.9 Obesity, unspecified; Z90.79 Acquired absence of other genital organ(s); Z90.722 Acquired absence of ovaries, bilateral
CPT/HCPCS: 36415; 80053; 85025; 85610; 85730; 96374; 96375; 99284; J1170; J2405; J2765

== ENCOUNTER 2022-08-29 01:25 | Day surgery (SDC) | payer MEDICARE, SELFPAY ==
--- NOTE | 2022-08-27 09:24 | PC.NURSE ---
Report to the Outpatient Waiting Room, entrance under the green pavilion located off [facility], at time __1130 on date _08/29/22 . Planned Procedure Time: _1330 . Time changes happen often and if your time is changed the preop area will call you the afternoon before. - You and your visitor will be asked to self-screen and do not enter if you have any COVID symptoms. - Only one visitor is requested with a max of two and NO children visitors are allowed at this time. - The patient visitor may be requested to leave or wait in car when not with patient due to distancing restrictions. - A mask is optional within the hospital. Patients may have clear liquids (water, carbonated beverages, clear teas, apple juice) until 3 hours prior to surgery with a maximum of 20 ounces. - No food from midnight until time of surgery - Infants may have breast milk until 4 hours before surgery, formula 6 hours prior to surgery. - Children will be allowed to drink immediately following surgery. If applicable, please bring a bottle or sippy cup to assist with drinking. Juice, water, soda, and popsicles are readily available. For infants on formula, please bring formula the day of surgery. Pacifiers are allowed. Take the following medications with a SIP of water the morning of surgery: _BACTRIM Medications to discontinue per physician PT STATES LAST DOSE XARELTO 08/24/22__ MULTIVITAMIN 3 DAYS PRE OP Date to take last dose__MULTIVITAMIN 08/25/22 Please no make-up, nail indonesian, hairspray, perfume, deodorant, or body powder the day of surgery. No jewelry (including any body piercings) or valuables the day of surgery, leave them at home. Please take a shower or bath the night before, or the morning of, surgery with an antibacterial soap. Wear comfortable, loose fitting clothing. Children are encouraged to wear pajamas. - Jewelry must be removed prior to entering the operating room. Rings and piercings that are not removed may be cut off. - The hospital will not accept responsibility for valuables. - Please leave all valuables, including medications, at home the day of surgery. If you are going home after surgery, a licensed gravel truck driver must drive you home. - NO public transportation without another adult if you receive anesthesia. - We recommend that an adult stay with you for 24 hours following discharge. - We also recommend that you do not drive, make important decision, drink alcoholic beverages, or take any drugs that were not prescribed by your health care provider for at least 24 hours after your discharge time. For Pediatric surgeries, we recommend two adults accompany the child home. Follow any additional instructions given to you from your surgeon. If you or anyone in your household have experienced Covid symptoms in the past week, please notify your surgeon or the nurse liaison at the phone number below for possible testing. Telephone instructions given to ___PATIENT and asked if any additional questions and then verbalized understanding. Patient advised to call surgeon office or pre surgery nurse liaison [phone] if any additional questions.
[2022-08-27 09:44] VITALS: BMI 32.9
--- NOTE | 2022-08-27 17:07 | PM.HPGS ---
History of Present Illness History of Present Illness Consent: Risks, benefits, and alternatives have been discussed and questions answered. Patient agrees to proceed with procedure. Chief complaint: left kidney stone Narrative: Grecia Albert is a 72 year old female recently in the ER with gross hematuria. Imaging via CT scan the abdomen pelvis with without contrast shows some enhancing soft tissue material in her left renal pelvis and possibly left distal ureter. This was felt to be consistent with clot. Patient has no prior significant history of recurrent urolithiasis urinary tract infections or other pathology. After discussion of options she elected to proceed with outpatient cystoscopy with left retrograde pyelography and left ureteroscopy. She is aware the risk including, but not limited to, persistent bleeding, ureteral edema and need to place a stent. Review of Systems Cardiovascular: Cardiovascular: Denies chest pain, Denies lightheadedness, Denies palpitations and Denies dyspnea Respiratory: Respiratory: Denies dyspnea Gastrointestinal: Gastrointestinal: Denies diarrhea, Denies nausea and Denies vomiting Genitourinary: Genitourinary: Reports hematuria and Denies dysuria Endocrine: Endocrine: Denies palpitations [facility] Past Medical History Medical History (Updated 08/27/22 @ 17:11 by Cory Cleaning MD) GERD (gastroesophageal reflux disease) HTN (hypertension) Hydronephrosis Hypercholesterolemia Obesity Surgical History Surgical History History of appendectomy Status post bunionectomy Status post total hysterectomy and bilateral salpingo-oophorectomy Social History Social History Smoking status: Never smoker Alcohol intake: current Substance use: never Substance use type: does not use Living arrangements: with family Spiritual care concerns: No Meds Home Medications and Allergies Home Medications Medication Instructions Recorded Confirmed Type atorvastatin 10 mg tablet 10 mg PO DAILY 05/20/20 08/27/22 History Adults Multivitamin 1 tab-cap PO DAILY 11/17/20 08/27/22 History losartan 25 mg tablet 25 mg PO DAILY 11/17/20 08/27/22 History omeprazole 20 mg capsule,delayed 20 mg PO Q48H 11/17/20 08/27/22 History release hydrocodone 5 mg-acetaminophen 325 1 tablet PO Q6H PRN pain 3 days 08/25/22 08/27/22 Rx mg tablet #12 tabs metoclopramide HCl 10 mg tablet 10 mg PO Q6H PRN nausea and 08/25/22 08/27/22 Rx (Reglan) vomiting #14 tabs ondansetron 4 mg disintegrating 4 mg PO Q8H PRN nausea and 08/25/22 08/27/22 Rx tablet vomiting #10 tabs diltiazem HCl 240 mg 240 mg PO QPM 08/27/22 08/27/22 History tablet,extended release 24 hr rivaroxaban 20 mg tablet (Xarelto) 20 mg PO QPM 08/27/22 08/27/22 History sulfamethoxazole 800 1 tablet PO BID 08/27/22 08/27/22 History mg-trimethoprim 160 mg tablet Allergies Allergy/AdvReac Type Severity Reaction Status Date / Time No Known Allergies Allergy Unknown Verified 08/27/22 09:12 Exam Const: General: no acute distress Resp: Effort & Inspection: normal respiratory effort GI: Inspection: non-distended GI Palp: No abdominal tenderness and No Guarding due to palpation present (GI) Auscultation: normal bowel sounds Assessment and Plan Assessment and plan (1) Gross hematuria: Code(s): R31.0 - Gross hematuria Status: Acute Assessment and Plan: cystoscopy, left retrograde pyelography and left ureteroscopy
--- NOTE | 2022-08-28 15:44 | P.PNAN_ITS ---
Anes - Initial Pre Proc Eval Procedure: Operation Date: 08/29/22 13:30 Proposed Procedures p Cystoscopy, Left Ureteroscopy, Possible Left Retrograde Pyelogram, Possible Left Stone Extraction, Possible Left Stent Placement, Possible Holmium Laser Procedure - Cory Cleaning MD Date/Time: 08/28/22 15:44 Surgeon: Cory Cleaning MD Pre Op Diagnosis: left kidney stone Patient Data Age: 72 Gender: F Height: 1.7 m Weight: 95.3 kg Allergies Allergy/AdvReac Type Severity Reaction Status Date / Time No Known Allergies Allergy Unknown Verified 08/29/22 12:12 Home Medications Medication Instructions Recorded Confirmed Type atorvastatin 10 mg tablet 10 mg PO DAILY 05/20/20 08/29/22 History Adults Multivitamin 1 tab-cap PO DAILY 11/17/20 08/29/22 History losartan 25 mg tablet 25 mg PO DAILY 11/17/20 08/29/22 History omeprazole 20 mg capsule,delayed 20 mg PO Q48H 11/17/20 08/29/22 History release hydrocodone 5 mg-acetaminophen 325 1 tablet PO Q6H PRN pain 3 days 08/25/22 08/29/22 Rx mg tablet #12 tabs metoclopramide HCl 10 mg tablet 10 mg PO Q6H PRN nausea and 08/25/22 08/29/22 Rx (Reglan) vomiting #14 tabs ondansetron 4 mg disintegrating 4 mg PO Q8H PRN nausea and 08/25/22 08/29/22 Rx tablet vomiting #10 tabs diltiazem HCl 240 mg 240 mg PO QPM 08/27/22 08/29/22 History tablet,extended release 24 hr rivaroxaban 20 mg tablet (Xarelto) 20 mg PO QPM 08/27/22 08/29/22 History Patient hx anesthesia problems: none Family hx anesthesia problems: none Results Review: All pre-operative results and documents have been reviewed as part of the pre- operative evaluation. [facility] Past Medical History Medical History (Updated 08/28/22 @ 15:45 by Santhosh Lyon MD) Atrial fibrillation GERD (gastroesophageal reflux disease) HTN (hypertension) Hydronephrosis Hypercholesterolemia MVP (mitral valve prolapse) Obesity CHEMA (obstructive sleep apnea) Surgical History Surgical History History of appendectomy Status post bunionectomy Status post total hysterectomy and bilateral salpingo-oophorectomy Social History Social History Smoking status: Never smoker Alcohol intake: current Substance use: never Substance use type: does not use Living arrangements: with family Spiritual care concerns: No Anes - Eval Final PreProcedure Day of Procedure 08/28/22 15:44 Patient weight: obese Heart: regular rate and rhythm Lungs: clear to auscultation Airway: Mallampati scale Last oral intake: >/= 8 hours ASA classification: III Emergent: no Anesthetic plan: proceed Anesthesia type and monitoring: general LMA and standard monitoring Results Review: All pre-operative results and documents have been reviewed as part of the pre- operative evaluation. Informed Consent: The patient's anesthetic plan and its attendant risks and benefits were discussed with the patient/family/POA. Questions were solicited and answers provided to the satisfaction of the patient/family/POA.
--- NOTE | ~2022-08-29 | XR_ITS ---
EXAMINATION: XR retrograde pyelogram LT DATE: 08/29/2022 13:30 JANITORIAL MANAGER INDICATION: LT RETRO/STENT . TECHNIQUE: 2 fluoroscopic images, including 2 cine clips of 28 and 71 images of the left abdomen and pelvis were obtained during left retrograde pyelography and stent placement performed by the surgeon. I was not present in the operating room. Fluoroscopy exposure time was 60.8 seconds. DAP 0.70069 mGy m2. COMPARISON: CT abdomen and pelvis 08/24/2022 FINDINGS: Cannulation of the collecting system on the left, with contrast injection. No significant hydronephro sis or filling defects detected. Post stent placement images not provided. IMPRESSION: Fluoroscopic documentation of left retrograde pyelography with stent placement. Please refer to the o perative note for complete procedural details . Reviewed, dictated and finalized at location K. TORIAL MANAGER IMPRESSION: Fluoroscopic documentation of left retrograde pyelography with stent placement. Please refer to the operative note for complete procedural details .
[2022-08-29 11:47] VITALS: BP 142/75; PULSE 77; RESP 16; TEMP 36.3; O2SAT 100
[2022-08-29] MEDS: LACTATED RINGERS 1,000 ML 30 ML IV CONT (12:34)
--- NOTE | 2022-08-29 13:00 | WPDHPUPDATE1 ---
History and Physical Update Update Date/Time: 08/29/22 13:00 History and Physical has been reviewed, including an updated exam of the patient. There are NO changes in the patient's condition. Risks, benefits, and alternatives have been discussed and questions answered. Patient agrees to proceed with procedure.
[2022-08-29] MEDS: ceFAZolin 2 GM/D5W 50 ML 2 GM/50 ML BAG IVPB (13:28)
[2022-08-29] MEDS: LIDOCAINE HCL 2% GEL UROJET 10 ML PKG MUCOUS MEM (14:04)
[2022-08-29 14:13] VITALS: BP 135/67; PULSE 91; RESP 16; TEMP 36.4; O2SAT 100
--- NOTE | 2022-08-29 14:13 | SUR.OPER ---
Two urine specimens taken out of the room at 1405 with Mary RODRIGUEZ and handed to Naya in pathology.
--- NOTE | 2022-08-29 14:18 | W.PM.PROC2 ---
Procedure Note - Detailed Date of Procedure 08/29/22 Pre-op Diagnosis Hematuria, left renal pelvic and ureteral filling defect Post-op Diagnosis Other ( normal cystoscopy and left ureteralrenoscopy) Procedure Performed Cystoscopy, left retrograde pyelography and left ureteroscopy Surgeon Cory Cleaning MD Anesthesia General Description of Procedure patient is brought the op suite received prepped draped in routine sterile fashion while in dorsal lithotomy position after the uneventful induction of a general LMA anesthetic. The 21 F rigid cystoscope was placed in her bladder and urine was collected for cytology. Bladder neck and urethra endoscopically normal. The bladder mucosa is normal without hyperemia. There was no intravesical foreign body or neoplasm. She has a single orthotopic ureteral orifice bilaterally. An 8F ball-tip catheter was used to obtain a left retrograde pyelogram. This appears perfectly normal without filling defects in either the ureter or collecting system and without points of obstruction. A 0.035 in glidewire was advanced in the left renal pelvis and the distal ureter was dilated with an 8 F 10 F dilator. Ureteroscopy was undertaken with a 7.5 F digital flexible ureteral scope. The entire collecting system and left ureter very carefully inspected. There was absolutely no sign of neoplasm. There was some very slight hyperemia in the upper pole calyx, at the point where the guidewire was passed. Otherwise was no mucosal hyperemia. There is certainly no gross neoplasm. Entire ureter, likewise, appeared normal. This plan all scopes and wires removed she was taken recovery room good condition. I will plan to re-evaluate with urine cytology and repeat CT urogram in 3 months. Drains No Pathology Yes Complications No immediate complications Condition Stable
[2022-08-29 14:25] VITALS: BP 145/73; PULSE 83; RESP 16; O2SAT 99
[2022-08-29 14:40] VITALS: BP 148/70; PULSE 74; RESP 16; O2SAT 98
[2022-08-29 14:44] VITALS: BP 175/78; PULSE 82; RESP 16; O2SAT 99
[2022-08-29 15:14] VITALS: BP 169/81; PULSE 80; RESP 21; O2SAT 100
== END 2022-08-29 15:19 | disposition home or self-care (01) ==
PROVIDERS: PCP Internal Medicine; Visit Provider Urology
PROC: (CPT 52352; principal; 2022-08-29 13:30)
DX: R31.0 Gross hematuria (principal); I10 Essential (primary) hypertension; K21.9 Gastro-esophageal reflux disease without esophagitis; E78.00 Pure hypercholesterolemia, unspecified; I48.91 Unspecified atrial fibrillation; I34.1 Nonrheumatic mitral (valve) prolapse; G47.33 Obstructive sleep apnea (adult) (pediatric); Z79.01 Long term (current) use of anticoagulants; E66.9 Obesity, unspecified; Z68.33 Body mass index [BMI] 33.0-33.9, adult
CPT/HCPCS: 52351; 74420; 87086; 88108; A9270; C1758; C1769; J0690; J2370; J2405; J2704; J3010; J7120

== ENCOUNTER 2024-05-14 12:37 | Outpatient (CLI) | payer MEDICARE, SELFPAY ==
--- NOTE | ~2024-05-14 | CT_ITS ---
EXAMINATION: CT abdomen pelvis w con DATE: 05/14/2024 13:10 INDICATION: Right upper quadrant abdominal pain. TECHNIQUE: Computed tomography (CT) of the abdomen and pelvis was performed with 100 mL Omnipaque 350 intravenous contrast. Automated exposure control and iterative reconstruction technique were employe d. The dose-length product was 825.31 mGy-cm. COMPARISON: CT abdomen and pelvis 08/24/2022 FINDINGS: The visualized portions of the lung bases demonstrate mild atelectasis. No pleural effusion . Cardiomegaly is noted. No pericardial effusion. There is a small sliding hiatal hernia. There are c ysts in the liver measuring up to 2.0 cm. The gallbladder, pancreas, adrenal glands, are normal. Ther e are cysts in the kidneys measuring up to 15 mm on the left. There is calcified atherosclerosis of t he aorta and many of the other arteries. There are no dilated loops of bowel. The appendix is not vis ualized. There are no pathologically enlarged lymph nodes. There is no free intraperitoneal fluid. Th ere is an umbilical hernia containing fat. There is mild lumbar spondylosis. IMPRESSION: 1. Small sliding hiatal hernia. 2. Umbilical hernia containing fat. Reviewed, dictated and finalized at location A.
[2024-05-14 12:54] LABS: Estimated Glomerular Filt Rate > 60
== END 2024-05-14 12:38 ==
LOC: MICIMG 12:38
PROVIDERS: PCP Internal Medicine; Visit Provider Internal Medicine
DX: R10.9 Unspecified abdominal pain (principal); K44.9 Diaphragmatic hernia without obstruction or gangrene; K42.9 Umbilical hernia without obstruction or gangrene
CPT/HCPCS: 74177; Q9967

== ENCOUNTER 2024-11-25 00:52 | Day surgery (SDC) | payer MEDICARE, SELFPAY ==
[2024-11-23 16:21] VITALS: BMI 30.6
--- OUTSIDE RECORDS SUMMARY | 2024-11-25 00:55 | XMS_ITS | Continuity of Care Document ---
Author Organization [facility] Address [address] [place] [address] [address] [place] [address] Phone Care Team Providers Care Medical Coding Instructor Name Role Phone Sebas Johnston Unavailable Unavailable Procedures Procedure Date Eye Exam, New Patient Refraction Advance Directives Directive Yes / No Effective Date File Name No Information Encounters Encounter Description Practice Location Reason(s) For Visit Diagnoses Date Provider Providers Copied on Encounter [facility], [address] [place] [address] [address], [place], [place], [id number], [place] tel:[phone] [facility] No Information [address] , [address], [place], [address], [place]. tel:[phone] Family History Family Member Type Diagnosis Age At Onset No Information Payers Payer name Insurance type Covered libertarian ID Authoriza tion(s) No Information Social History Type Description Quantity Date Captured Comments Sex Female Smoking Status No Information Chief Complaint And Reason For Visit No Information Reason For Referral Reason For Referral No Information History Of Present Illness Encounter Date Complaint History Of Prese nt Illness No Information Functional Status Date Functional Assessmen t No Information Instructions Date Instruction Additional Infor mation No Information Assessments Type Assessment Date No Information Patient Care Teams Name Effective Dates (start - stop) Status Members No Information
--- OUTSIDE RECORDS SUMMARY | 2024-11-25 00:55 | XMS_ITS | Referral Summary ---
Author Organization [facility] Address [address] [place] [address] Care Team Providers Care Die Repairer Stamping Name Role Phone Luis Wade MD Primary Care Provider Ernesto Cruz MD Unavailable Zackery Lambert MD Unavailable Angela Penn RN Unavailable Encounters Date Type Department Care Team Description 10/15/2024 1:15 PM CORRESPONDENCE DICTATOR Office Visit [facility] Cardiology [address] 8th [place] [address] [place] [address] Maryann Brizuela NP Hyperlipidemia, unspecified hyperlipidemia type (Primary Dx); Paroxysmal atrial fibrillation (CMS/HCC) (HCC); Hypercholesterolemia from Last 3 Months Allergies No known active allergies Medications atorvastatin (LIPITOR) 10 mg tablet Take 1 tablet (10 mg total) by mouth daily 8 Active calcium carbonate-vitamin D3 1,250 mg (500 mg elemental)-400 unit chewable tablet Take 1 tablet by mouth daily Active ondansetron (ZOFRAN) 4 mg tablet Take 1 tablet (4 mg total) by mouth every 6 (six) hours as needed for nausea 12 tablet 4 Active aspirin 81 mg enteric coated tablet Take 1 tablet every day by oral route. Active omeprazole (PriLOSEC) 20 mg capsule Take 1 capsule (20 mg total) by mouth daily Active levETIRAcetam (KEPPRA) 1,000 mg tablet Take 1 tablet (1,000 mg total) by mouth 2 (two) times a day 60 tablet 11 4 05/12/20 25 Active clonazePAM (KlonoPIN) 0.5 mg disintegrating tablet Take 1 tablet (0.5 mg total) by mouth 2 (two) times a day as needed for seizures 10 tablet 1 4 Active naproxen (NAPROSYN) 250 mg tablet Take by mouth as needed for pain Active Active Problems Problem Noted Date Diagnosed Date Confusion 08/29/2023 Overview (10/22/2023): MCT after admission for confusion showed no arrhythmias Nocturnal hypoxemia 03/08/2023 Overview (03/08/2023): Sustained. SpO2 <=88% 128 min with O2 1-2 min. Not related to obstructive sleep apnea. Paroxysmal atrial fibrillation (CMS/HCC) 022 Overview (10/22/2023): [id number] Score = 2 - on Xarelto Assessment & Plan (10/15/2024 3:28 PM CORRESPONDENCE DICTATOR): Regular on exam. [id number] of 3, now age 74. She has an apple watch with less than 2% afib burden. We reviewed her annual risk of 3% stroke and risk benefit of low burden and anticoagulation with ASA vs NOAC. She would like to continue ASA for now and if she has an increased burden we can resume a NOAC. CHEMA (obstructive sleep apnea) 09/24/2022 Disorder of vitamin B12 09/13/2021 Enthesopathy of hip region 09/13/2021 Essential hypertension 09/13/2021 Hypercholesterolemia 09/13/2021 Assessment & Plan (10/15/2024 3:28 PM CORRESPONDENCE DICTATOR): FLP when able. Lipitor 10 mg daily. Gastroesophageal reflux disease 09/13/2021 Peripheral venous insufficiency 01/22/2017 Asymptomatic varicose veins of lower extremity 0 10/22/2011 Guzman angioma 10/22/2011 Lentigo 10/22/2011 Nevus, non-neoplastic 10/22/2011 Other melanin hyperpigmentation 10/22/2011 Metatarsalgia 05/25/2010 Bunion 05/25/2010 Immunizations Immunization Administration Dates Next Due Influenza, Quad, Adjuvantate d, Intramuscular 07/18/2021 Influenza, Quadrivalent, Spl it, Intramuscular 07/13/2022,07/18/2021 Influenza, Quadrivalent, Spl it, Preservative Free, Intramuscular 07/14/2020 Influenza, Trivalent, Adjuva nted, Intramuscular 07/15/2019 Influenza, Trivalent, High D ose, Split, Preservative Free, Intramuscular 10/17/2017,07/13/2016 Influenza, Unspecified 07/16/2023,2020,07/23/2018,07/07,07/13/2016 Pneumococcal Polysaccharide PPV23 07/01/2015 ZOSTER LIVE 08/04/2013 Social History Tobacco Use Types Packs/Day Years Used Date Smoking Tobacco: Never Smokeless Tobacco: Never Tobacco Cessation:Counseling Given: No AUDIT-C Answer Date Recorded Q1: How often do you have a drink containing alc ohol? Monthly or less 11/14/2021 Average Number of Drinks Not on file 022 Frequency of Binge Drinking Not on file 05/2022 Personal Safety Answer Date Recorded Have you ever been in or are you currently in a harmful physical or emotional relationship or is someone making you feel afraid or unsafe? Denies 06/15/2024 Comments No Sex and Gender Information Value Date Recorded Sex Assigned at Not on file Legal Sex Female 8:25 AM CORRESPONDENCE DICTATOR Gender Identity Not on file Sexual Orientation Straight 11/10/2021 10 :21 AM CORRESPONDENCE DICTATOR Last Filed Vital Signs Vital Sign Reading Time Taken Comments Blood Pressure 129/85 10/15/2024 1:22 PM CORRESPONDENCE DICTATOR Pulse 77 10/15/2024 1:22 PM CORRESPONDENCE DICTATOR Temperature 36.6 C (97.8 F) 06/15/2024 5:42 PM CDT Respiratory Rate 16 06/15/2024 5:42 PM CDT Oxygen Saturation 97% 10/15/2024 1:22 PM CORRESPONDENCE DICTATOR Inhaled Oxygen Concentration - - Weight 93.4 kg (206 lb) 10/15/2024 1:22 PM CORRESPONDENCE DICTATOR Height 170.2 cm (5' 7 ) 10/15/2024 1:22 PM CORRESPONDENCE DICTATOR Body Mass Index 32.26 10/15/2024 1:22 PM CORRESPONDENCE DICTATOR Plan of Treatment Not on file Procedures Procedure Name Priority Date/Time Associated Diagnosis Comments HEPATITIS C ANTIBODY Routine 08/30/2023 9:01 PM CORRESPONDENCE DICTATOR from Last 3 Months or Most Recently Relevant to Health Maintenance Results * Hepatitis C antibody Blood (08/30/2023 9:01 PM CORRESPONDENCE DICTATOR) Hep C Ab Nonreactive Nonreactive [facility] Comment:Antibodies to HCV no t detected. Does NOT exclude the possibility of recent exposure to HCV. Current interpretive data was last revised on 22 Blood 08/30/2023 9:01 PM CORRESPONDENCE DICTATOR 08/30/2023 9:06 PM CORRESPONDENCE DICTATOR Nnamdi Kennedy MD LAB MICROBIOLOGY - GENERAL ORDERABLES Final Result [facility] Department [place] [address] from Last 3 Months or Most Recently Relevant to Health Maintenance Insurance T MEDICARE MEDICARE [employer] MEDICARE Address: [address] [address] [place] [address] [facility] MEDIC[facility] Advance Directives For more information, please contact: [phone] * Full Code (Latest Code Status on File) Date Activated Date Inactivated Comments 08/30/2023 4:54 PM 09/02/2023 6:44 PM Care Teams Die Repairer Stamping Relationship Specialty Start Date End Date Luis Wade MD [address] [facility] [address] [place] [address] PCP - General Internal Medicine 11/14/21 Ernesto Cruz MD [address] [place] [address] Consulting Physician Cardiovascular Disease 08/20/23 Zackery Lambert MD [address] [place] [address] Band Master Transplant 10/17/23 Angela Penn, GERALDINE [address] [facility] [address] [place] [address] Heart Failure Coordinator Engineering Mgr 10/17/23
--- OUTSIDE RECORDS SUMMARY | 2024-11-25 00:55 | XMS_ITS | Clinical Summary ---
Author Organization [facility] Address [address] [place] [address] Care Team Providers Care Hydrogen Plant Operator Name Role Phone Luis Wade MD Primary Care Provider Ernesto Cruz MD Unavailable Zackery Lambert MD Unavailable [phone] Angela Penn RN Unavailable [phone] Allergies No known active allergies Medications atorvastatin [...] Paroxysmal atrial fibrillation (CMS/HCC) 022 Overview (10/22/2023): [id number] Score = 2 - on Xarelto Assessment & Plan (10/15/2024 3:28 PM SERVICE LINE LAYER): Regular on exam. [id number] of 3, now age 74. She has [...] 09/13/2021 Assessment & Plan (10/15/2024 3:28 PM SERVICE LINE LAYER): FLP when able. Lipitor 10 mg daily. Gastroesophageal reflux disease 09/13/2021 Peripheral venous insufficiency 01/22/2017 Asymptomatic varicose veins of lower extremity 0 10/22/2011 Guzman angioma 10/22/2011 Lentigo 10/22/2011 Nevus, non-neoplastic 10/22/2011 Other melanin hyperpigmentation 10/22/2011 Metatarsalgia 05/25/2010 Bunion 05/25/2010 Encounters Date Type Department Care Team Description 10/15/2024 1:15 PM SERVICE LINE LAYER Office Visit [facility] Cardiology [address] [facility] 8th [place] [address] [place] [address] Maryann Brizuela NP Hyperlipidemia, unspecified hyperlipidemia type (Primary Dx); Paroxysmal atrial fibrillation (CMS/HCC) (HCC); Hypercholesterolemia from Last 3 Months Immunizations Immunization Administration Dates Next Due Influenza, Quad, Adjuvantate d, Intramuscular 07/18/2021 Influenza, Quadrivalent, Spl it, Intramuscular 07/13/2022,07/18/2021 Influenza, Quadrivalent, Spl it, Preservative Free, Intramuscular 07/14/2020 Influenza, Trivalent, Adjuva nted, Intramuscular 07/15/2019 Influenza, Trivalent, High D ose, Split, Preservative Free, Intramuscular 10/17/2017,07/13/2016 Influenza, Unspecified 07/16/2023,2020,07/23/2018,07/07,07/13/2016 Pneumococcal Polysaccharide PPV23 07/01/2015 ZOSTER LIVE 08/04/2013 Surgical History Surgery Date Site/Laterality Comments APPENDECTOMY 10/07/1984 - 10/06/1985 HYSTERECTOMY 10/07/2001 - 10/06/2002 Medical History Medical History Date Comments GERD (gastroesophageal reflux disease) Hypertension Family History Medical History Relation Name Comments Heart disease Father Mendoza Krishna Hypertension Father Mendoza Krishna Heart disease Mother Imelda Krishna Hyperlipidemia Mother Imelda Krishna Hypertension Mother Imelda Krishna Relation Name Status Comments Father Mendoza Krishna Mother Imelda Krishna Social History Tobacco Use Types Packs/Day Years [...] on file Legal Sex Female 8:25 AM SERVICE LINE LAYER Gender Identity Not on file Sexual Orientation Straight 11/10/2021 10 :21 AM SERVICE LINE LAYER Obstetrics History Last Filed Vital Signs Vital Sign Reading Time Taken Comments Blood Pressure 129/85 10/15/2024 1:22 PM SERVICE LINE LAYER Pulse 77 10/15/2024 1:22 PM SERVICE LINE LAYER Temperature 36.6 C (97.8 F) 06/15/2024 5:42 PM CDT Respiratory Rate 16 06/15/2024 5:42 PM CDT Oxygen Saturation 97% 10/15/2024 1:22 PM SERVICE LINE LAYER Inhaled Oxygen Concentration - - Weight 93.4 kg (206 lb) 10/15/2024 1:22 PM SERVICE LINE LAYER Height 170.2 cm (5' 7 ) 10/15/2024 1:22 PM SERVICE LINE LAYER Body Mass Index 32.26 10/15/2024 1:22 PM SERVICE LINE LAYER Plan of Treatment Health Maintenance Due Date Last Done Comments Colon Cancer Screening-Colonoscopy 1950 Depression Screening 1950 Osteoporosis Screening-Bone Density Scan 1950 DTaP/Tdap/Td Vaccine (1 - Tdap) 1960 Zoster Vaccine (2 of 3) 09/29/2013 08/04/2013 Well Visit 65+ 2014 Pneumococcal vaccine 65+ (2 of 2 - PCV) 07/01/2016 07/01/2015 Covid-19 Vaccine (5 - 2023-2 5 season) 2024 08/14/2021, 11/21/2020, 11/18/2020, Additional history exists Influenza Vaccine (#1) 2024 , 07/13/2022, 07/18/2021, Additional history exists Fall Risk Assessment 09/02/2024 09/02/2023 Hepatitis B Screening Completed 08/30/2023 Hepatitis C Screening Completed 08/30/2023 Procedures Procedure Name Priority Date/Time Associated Diagnosis Comments HEPATITIS C ANTIBODY Routine 08/30/2023 9:01 PM SERVICE LINE LAYER from Last 3 Months or Most Recently Relevant to Health Maintenance Results * Hepatitis C antibody Blood (08/30/2023 9:01 PM SERVICE LINE LAYER) Hep C Ab Nonreactive Nonreactive [facility] Comment:Antibodies to HCV no t detected. Does NOT exclude the possibility of recent exposure to HCV. Current interpretive data was last revised on 22 Blood 08/30/2023 9:01 PM SERVICE LINE LAYER 08/30/2023 9:06 PM SERVICE LINE LAYER Nnamdi Kennedy MD LAB MICROBIOLOGY - GENERAL ORDERABLES Final Result [facility] [place] [address] from Last 3 Months or Most Recently Relevant to Health Maintenance Insurance [facility] MEDICARE MEDICARE [facility] MEDICARE Address: [address] [address] [place] [address] [employer] MEDICARE Advance Directives For more information, please contact: [phone] * Full Code (Latest Code Status on File) Date Activated Date Inactivated Comments 08/30/2023 4:54 PM 09/02/2023 6:44 PM Care Teams Hydrogen Plant Operator Relationship Specialty Start Date End Date Luis Wade MD [address] [facility] [address] [place] [address] PCP - General Internal Medicine 11/14/21 Ernesto Cruz MD [address] [place] [address] Consulting Physician Cardiovascular Disease 08/20/23 Zackery Lambert MD [address] [place] [address] Plant Anatomist Transplant 10/17/23 Angela Penn, RN [address] [facility] [address] [place] [address] Heart Failure Coordinator Vice Principal 10/17/23
--- OUTSIDE RECORDS SUMMARY | 2024-11-25 00:55 | XMS_ITS | Continuity of Care Document ---
Author Organization [facility] Address [address] [place] [address] Phone Care Team Providers Care Sox Analyst Name Role Phone Semaj PT,MPT,ATC, Eliceo Unavailable Unavai lable Procedures Procedure Date Progress Note Therapeutic Exercise Therapeutic Exercise Therapeutic Exercise Therapeutic Exercise Therapeutic Activities Therapeutic Exercise Therapeutic Activities Therapeutic Exercise Neuromuscular Re-Ed Therapeutic Exercise Doc neg elder mal no plan PRES/ABSN URINE INCON ASSESS PT Evaluation Low Complexity Neuromuscular Re-Ed Therapeutic Exercise PT Evaluation Low Complexity Therapeutic Activities Therapeutic Exercise PT Evaluation Moderate Complexity Therapeutic Activities Therapeutic Exercise Neuromuscular Re-Ed Progress Note Therapeutic Activities Manual Therapy Neuromuscular Re-Ed Therapeutic Activities Manual Therapy Neuromuscular Re-Ed Therapeutic Activities Neuromuscular Re-Ed Manual Therapy Neuromuscular Re-Ed Manual Therapy Therapeutic Activities Therapeutic Activities Neuromuscular Re-Ed Manual Therapy Therapeutic Activities Neuromuscular Re-Ed Therapeutic Exercise Manual Therapy Manual Therapy Therapeutic Activities Therapeutic Exercise Neuromuscular Re-Ed PT Evaluation Moderate Complexity Therapeutic Exercise Therapeutic Activities Advance Directives Directive Yes / No Effective Date File Name No Information Encounters Encounter Description Practice Location Reason(s) For Visit Diagnoses Date Provider Providers Copied on Encounter [facility], [id number], tel:[phone] [place] No Information 4 Sem[place], [place]. [facility], [id number], tel:[phone] [place] No Information 4 [place]. . Referring Provider: Enzo Cabrera, [facility], [address]. tel:[phone] [facility] [address], [id number], tel:[phone] [place] No Information - 4 [place]. . Referring Provider: Enzo Cabrera, [facility], [address]. tel:[phone] [facility] [address], [id number], tel:[phone] [place] No Information 2- 4 [place]. . Referring Provider: Enzo Cabrera, [address], [address]. tel:[phone] [facility] [address], [place], [place], [id number], [place] tel:[phone] [place] No Information 4 [place]. . Referring Provider: Enzo Cabrera, [facility] [address], [place], [address]. tel:[phone] [facility], [address], [place], [place], [id number], [place] tel:[phone] [place] No Information 0 4 [place]. . Referring Provider: Enzo Cabrera, [facility] [address], [place], [address]. tel:[phone] [facility] [address] [facility] [address], [place], [place], [id number], tel:[phone] [place] No Information 4 [place]. . Referring Provider: Enzo Cabrera, [facility] [address], [place], [address]. tel:[phone] [place] [address], [address] [facility] [address], [place], [place], [id number], [place] tel:[phone] [place] No Information 4 [place]. . Referring Provider: Enzo Cabrera, [facility] [address], [place], [address]. tel:[phone] [facility], [place], [place], [id number], [place] tel:[phone] [place] Unspecified urinary incontinence 4 [place]. . Referring Provider: Enzo Cabrera, [facility] [address], [place], [address]. tel:[phone] [facility], [place], [place], [id number], [place] tel:[phone] [place] No Information 2 Makler Luke. . [facility], [place], [place], [id number], [place] tel:[phone] [place] No Information 1 Vicki Resendiz. . Referring Provider: Enzo Cabrera, [address] [facility] [address], [place], [address]. tel:[phone] [facility], [place], [place], [id number], [place] tel:[phone] [place] No Information 1 [place]. . [facility], [place], [place], [address], [place] tel:[phone] [place] No Information 1 [place]. . [facility], [place], [place], [id number], [place] tel:[phone] [place] No Information 1 [place]. . [facility], [place], [place], [address], [place] tel:[phone] [place] No Information 1 [place]. . [facility], [place], [place], [id number], [place] tel:[phone] [place] No Information 1 [place]. . [facility], [place], [place], [id number], [place] tel:[phone] [place] No Information 1 [place]. . [facility], [place], [place], [id number], [place] tel:[phone] [place] No Information 1 Garrels [place]. . [facility], [place], [place], [id number], [place] tel:[phone] [place] No Information Tusharjigar Vero. . Family History Family Member Type Diagnosis Age At Onset No Information Payers Payer name Insurance type Covered libertarian ID Keila james(marii Palomo Medicare Replacement CI [id number] Social History Type Description Quantity Date Captured Comments Sex Female Smoking Status No Information Chief Complaint And Reason For Visit No Information Reason For Referral Reason For Referral No Information History Of Present Illness Encounter Date Complaint History Of Prese nt Illness No Information Functional Status Date Functional Assessmen t No Information Instructions Date Instruction Additional Infor tish Kegel exercises were explained to the patient. Related to Unspecified urinary incontinence Giving encouragement to exercise Related to Overweight Giving encouragement to exercise Related to Overweight Giving encouragement to exercise Related to Overweight Giving encouragement to exercise Related to Overweight Giving encouragement to exercise Related to Overweight Giving encouragement to exercise Related to Overweight Giving encouragement to exercise Related to Overweight Giving encouragement to exercise Related to Overweight Giving encouragement to exercise Related to Overweight Giving encouragement to exercise Related to Overweight Assessments Type Assessment Date No Information Patient Care Teams Name Effective Dates (start - stop) Status Members No Information
[2024-11-25 07:22] VITALS: BP 156/76; PULSE 74; RESP 18; TEMP 36.3; O2SAT 100; BMI 30.4
[2024-11-25] MEDS: LACTATED RINGERS 1,000 ML 150 ML IV CONT (07:25)
--- NOTE | 2024-11-25 08:10 | P.PNAN_ITS ---
Anes - Initial Pre Proc Eval Procedure: Operation Date: 11/25/24 08:30 Proposed Procedures p Esophagogastroduodenoscopy & Colonoscopy - Boris Go MD Date/Time: 11/25/24 08:10 Surgeon: Boris Go MD Pre Op Diagnosis: Gerd,dysphagia,hernia,right and left quad pain Patient Data Age: 74 Gender: F Height: 1.73 m Weight: 90.9 kg Last Vital Signs Temp 97.4 F L 11/25/24 07:22 Pulse 74 11/25/24 07:22 Resp 18 11/25/24 07:22 BP 156/76 H 11/25/24 07:22 Pulse Ox 100 11/25/24 07:22 O2 Del Method Room Air 11/25/24 07:22 Allergies Allergy/AdvReac Type Severity Reaction Status Date / Time No Known Allergies Allergy Unknown Verified 11/25/24 07:20 Home Medications ?Medication ?Instructions ?Recorded ?Confirmed ?Type atorvastatin 10 mg tablet 10 mg PO QPM 05/20/20 11/25/24 History omeprazole 20 mg capsule,delayed 20 mg PO Q48H 11/17/20 11/25/24 History release aspirin 81 mg tablet,delayed 81 mg PO DAILY 11/12/24 11/25/24 History release (Adult Aspirin Regimen) levetiracetam 1,000 mg tablet 1,000 mg PO Q12H 11/12/24 11/25/24 History (Keppra) meloxicam 7.5 mg tablet 7.5 mg PO DAILY PRN pain 11/12/24 11/25/24 History multivitamin 1 tablet PO DAILY 11/12/24 11/25/24 History Patient hx anesthesia problems: none Family hx anesthesia problems: none Results Review: All pre-operative results and documents have been reviewed as part of the pre- operative evaluation. [facility] Past Medical History Medical History Blood clots in biliary tract following procedure CHEMA (obstructive sleep apnea) MVP (mitral valve prolapse) Atrial fibrillation Hydronephrosis GERD (gastroesophageal reflux disease) Obesity HTN (hypertension) Hypercholesterolemia Surgical History Surgical History History of appendectomy Status post total hysterectomy and bilateral salpingo-oophorectomy Status post bunionectomy Family History Family History Father Hypertension Heart disease Mother Hypertension Heart disease Sibling Hypertension Social History Social History Smoking status: Never smoker Alcohol intake: current Substance use: never Substance use type: does not use Lack of Transportation: No Lack of Food: Never True Current Housing: I Have Housing Concerned About Future Housing: No Difficulty Paying Gas/Electric Bills: No Difficulty Paying for Meds: No Currently Unemployed: No Education: Master's Degree or Higher Difficulty w/ Childcare or Family Care: No Living arrangements: with family Spiritual care concerns: No Anes - Eval Final PreProcedure Day of Procedure 11/25/24 08:10 Patient weight: obese Lungs: normal air movement Airway: Mallampati scale class II Neurological: alert and oriented Last oral intake: >/= 8 hours ASA classification: III Emergent: no Anesthetic plan: proceed Anesthesia type and monitoring: general GIVS and standard monitoring Results Review: All pre-operative results and documents have been reviewed as part of the pre- operative evaluation. Hyperlipidemia, HTN borderline, CHEMA but no CPAP, seizures last 09/29, remote hx of afib. Informed Consent: The patient's anesthetic plan and its attendant risks and benefits were discussed with the patient/family/POA. Questions were solicited and answers provided to the satisfaction of the patient/family/POA.
--- NOTE | 2024-11-25 08:29 | WPDHPUPDATE1 ---
History and Physical Update Update Date/Time: 11/25/24 08:29 History and Physical has been reviewed, including an updated exam of the patient. There are NO changes in the patient's condition. Risks, benefits, and alternatives have been discussed and questions answered. Patient agrees to proceed with procedure.
[2024-11-25] MEDS: BENZOCAINE (*SP) 60 ML SPRAY CAN (HURRICAINE) 1 SPRAY MUCOUS MEM (08:40)
--- NOTE | 2024-11-25 08:49 | SUR.OPER ---
EGD: [id number] COLON: 0850
[2024-11-25 09:07] VITALS: BP 103/47; PULSE 65; RESP 18; O2SAT 99
[2024-11-25 09:17] VITALS: BP 106/85; PULSE 64; RESP 18; O2SAT 99
[2024-11-25 09:27] VITALS: BP 150/64; PULSE 62; RESP 18; O2SAT 99
== END 2024-11-25 09:39 | disposition home or self-care (01) ==
PROVIDERS: PCP Internal Medicine; Referring Provider Nurse Practitioner; Visit Provider Internal Medicine Gastroenterology
PROC: 0DJ08ZZ Inspection of Upper Intestinal Tract, Via Natural or Artificial Opening Endoscopic (ICD-10-PCS; CPT 45378; principal; 2024-11-25 08:30)
DX: K63.5 Polyp of colon (principal); K64.8 Other hemorrhoids; K44.9 Diaphragmatic hernia without obstruction or gangrene; K31.89 Other diseases of stomach and duodenum; K31.7 Polyp of stomach and duodenum; K63.89 Other specified diseases of intestine; K29.70 Gastritis, unspecified, without bleeding; K21.9 Gastro-esophageal reflux disease without esophagitis; D17.5 Benign lipomatous neoplasm of intra-abdominal organs; E78.5 Hyperlipidemia, unspecified; I10 Essential (primary) hypertension; E53.8 Deficiency of other specified B group vitamins; G47.33 Obstructive sleep apnea (adult) (pediatric); I34.1 Nonrheumatic mitral (valve) prolapse; N13.30 Unspecified hydronephrosis; I48.91 Unspecified atrial fibrillation; I87.2 Venous insufficiency (chronic) (peripheral); R56.9 Unspecified convulsions; E66.9 Obesity, unspecified; Z68.30 Body mass index [BMI] 30.0-30.9, adult; Z79.82 Long term (current) use of aspirin; Z98.890 Other specified postprocedural states; Z82.49 Family history of ischemic heart disease and other diseases of the circulatory system
CPT/HCPCS: 43239; 45380; 88305; J2003; J2704; J7120

== ENCOUNTER 2025-04-26 09:59 | Outpatient (CLI) | payer MEDICARE, SELFPAY ==
--- NOTE | ~2025-04-26 | DEXA_ITS ---
Bone Density Report Name: ANA LAURA FORTUNE Age: 74 Sex: Female Ethnicity: White Date of : 1950 Indication: postmenopausal; screening for osteoporosis; Referring Provider: MELITON*, JOSTIN Hernandez Study: Bone densitometry was performed. Exam Date: April 26, 2025 Accession number: [id number] Bone Density: Region BMD T-score Z-score Classification AP Spine(L1-L4) 1.030 -0.2 2.3 Normal Femoral Neck (Left) 0.662 -1.7 0.4 Osteopenia Total Hip (Left) 0.961 0.2 2.0 Normal Femoral Neck (Right) 0.703 -1.3 0.8 Osteopenia Total Hip (Right) 1.003 0.5 2.3 Normal Total Hip Mean 0.982 0.4 2.2 Normal World Health Organization criteria for BMD impression classify patients as: Normal (T-score at or above -1.0), Osteopenia (T-score between -1.0 and -2.5), or Osteoporosis (T-score at or below -2.5). 10-year Fracture Risk(1): Major Osteoporotic Fracture 12% Hip Fracture 2.5% Reported Risk Factors: [place] (), Neck BMD=0.662, BMI=31.0 (1) FRAX(R) Version 3.08. Fracture probability calculated for an untreated patient. Fracture probability may be lower if the patient has received treatment. Clinical Information Provided by Patient: Patient maximum height was 67 Menopause Age: 49 Does not regularly consume dairy products Drinks caffeinated beverages Onset of menses at age 12 Number of children 2 Impression: The patient has low bone mass, based on the Left Femoral Neck T-score. The patient has an estimated ten-year risk of hip fracture of 2.5% and an estimated ten-year risk of major fracture of 12%, based on the WHO FRAX algorithm. Discussion: BONE DENSITY IS LOW AT ONE OR MORE SKELETAL SITES. This patient's lowest T-score is low at one or more skeletal sites. It meets the World Health Organization's (WHO) criteria for ?low bone mass? (T-score between -1.0 and -2.5). The patient's 10-year risk of fracture as calculated by FRAX is less than the threshold where pharmacological therapy is recommended by the National Osteoporosis Foundation (NOF). However, all treatment decisions require clinical judgment and consideration of individual patient factors, including patient preferences, comorbidities, previous drug use, risk factors not captured in the FRAX model (e.g., frailty, falls, vitamin D deficiency, increased bone turnover, interval significant decline in bone density) and possible under or overestimation of fracture risk by FRAX. The patient should follow a healthful lifestyle (good nutrition with adequate calcium and vitamin D, and appropriate weight-bearing exercise). Follow-Up: Consider repeating this study in 2 to 3 years to reassess this patient's status, or sooner if there is some new clinical indication. Reported by: GLORIA on 04/26/2025 10:46:00 AM. Reviewed, dictated and finalized at location A.
--- OUTSIDE RECORDS SUMMARY | 2025-04-26 10:13 | XMS_ITS | Clinical Summary ---
Author Organization [facility] Address [address] [place] [address] Care Team Providers Care Mammal Control Agent Name Role Phone Luis Wade MD Primary Care Provider Ernesto Cruz MD Unavailable Zackery Lambert MD Unavailable [phone] Angela Penn RN Unavailable [phone] Allergies No known active allergies Medications atorvastatin [...] (20 mg total) by mouth daily Active clonazePAM (KlonoPIN) 0.5 mg disintegrating tablet Take 1 tablet (0.5 mg total) by mouth 2 (two) times a day as needed for seizures 10 tablet 1 4 Active naproxen (NAPROSYN) 250 mg tablet Take by mouth as needed for pain Active levETIRAcetam (KEPPRA) 500 mg tablet Take 2 tablets (1,000 mg total) by mouth every morning AND 2.5 tablets (1,250 mg total) nightly. 135 tablet 3 5 025 Active levETIRAcetam (KEPPRA) 1,000 mg tablet Take 1 tablet (1,000 mg total) by mouth every morning AND 1.5 tablets (1,500 mg total) nightly. 75 tablet 5 5 025 Discontin ued(Reord er) Active Problems Problem Noted Date Diagnosed Date Convulsions 01/15/2025 Confusion 08/29/2023 Overview (10/22/2023): MCT after admission for confusion showed no arrhythmias Nocturnal hypoxemia 03/08/2023 Overview (03/08/2023): Sustained. SpO2 <=88% 128 min with O2 1-2 min. Not related to obstructive sleep apnea. Paroxysmal atrial fibrillation 09/24/2022 Overview (10/22/2023): [id number] Score = 2 - on Xarelto Assessment & Plan (10/15/2024 3:28 PM COOK SUPERVISOR): Regular on exam. [id number] of 3, now age 74. She has [...] 09/13/2021 Assessment & Plan (10/15/2024 3:28 PM COOK SUPERVISOR): FLP when able. Lipitor 10 mg daily. Gastroesophageal reflux disease 09/13/2021 Peripheral venous insufficiency 01/22/2017 Asymptomatic varicose veins of lower extremity 0 10/22/2011 Guzman angioma 10/22/2011 Lentigo 10/22/2011 Nevus, non-neoplastic 10/22/2011 Other melanin hyperpigmentation 10/22/2011 Metatarsalgia 05/25/2010 Bunion 05/25/2010 Encounters Date Type Department Care Team Description 04/12/2025 Telephone [facility] Epilepsy [address] [place] [address] [place] [address] Luis Woodson MD PhD Seizures from Last 3 Months Immunizations Immunization Administration [...] Never Smokeless Tobacco: Never Tobacco Cessation:Counseling Given: Not Answered AUDIT-C Answer Date Recorded Q1: How often [...] on file Legal Sex Female 8:25 AM COOK SUPERVISOR Gender Identity Not on file Sexual Orientation Straight 11/10/2021 10 :21 AM COOK SUPERVISOR Obstetrics History Last Filed Vital Signs Vital Sign Reading Time Taken Comments Blood Pressure 138/86 01/18/2025 7:53 AM CDT Pulse 76 01/18/2025 7:53 AM CDT Temperature 36.6 C (97.8 F) 06/15/2024 5:42 PM CDT Respiratory Rate 16 06/15/2024 5:42 PM CDT Oxygen Saturation 97% 10/15/2024 1:22 PM COOK SUPERVISOR Inhaled Oxygen Concentration - - Weight 91.4 kg (201 lb 9.6 oz) 01/18/2025 7:53 A M CDT Height 170.2 cm (5' 7) 01/18/2025 7:53 AM CDT Body Mass Index 31.58 01/18/2025 7:53 AM CDT Plan of Treatment Health Maintenance Due Date Last Done Comments Colon Cancer Screening-Colonoscopy 1950 Depression Screening 1950 Osteoporosis Screening-Bone Density Scan 1950 DTaP/Tdap/Td Vaccine (1 - Tdap) 1960 Zoster Vaccine (2 of 3) 09/29/2013 08/04/2013 Well Visit 65+ 2014 Pneumococcal vaccine 65+ (2 of 2 - PCV) 07/01/2016 07/01/2015 Covid-19 Vaccine (5 - 2023-2 5 season) 2024 08/14/2021, 11/21/2020, 11/18/2020, Additional history exists Fall Risk Assessment 09/02/2024 09/02/2023 Influenza Vaccine (#1) 2025 3, 07/13/2022, 07/18/2021, Additional history exists Hepatitis B Screening Completed 08/30/2023 Hepatitis C Screening Completed 08/30/2023 Procedures Procedure Name Priority Date/Time Associated Diagnosis Comments HEPATITIS C ANTIBODY Routine 08/30/2023 9:01 PM COOK SUPERVISOR from Last 3 Months or Most Recently Relevant to Health Maintenance Results * Hepatitis C antibody Blood (08/30/2023 9:01 PM COOK SUPERVISOR) Hep C Ab Nonreactive Nonreactive [facility] Comment:Antibodies to HCV no t detected. Does NOT exclude the possibility of recent exposure to HCV. Current interpretive data was last revised on 22 Blood 08/30/2023 9:01 PM COOK SUPERVISOR 08/30/2023 9:06 PM COOK SUPERVISOR Nnamdi Kennedy MD LAB MICROBIOLOGY - GENERAL ORDERABLES Final Result [facility] Department [place] [address] from Last 3 Months or Most Recently Relevant to Health Maintenance Insurance [employer] MED[employer]ARE UHC MEDICARE ADVANTAGE [employer] MEDICARE Advance Directives For more information, please contact: [phone] * Full Code (Latest Code Status on File) Date Activated Date Inactivated Comments 08/30/2023 4:54 PM 09/02/2023 6:44 PM Care Teams Mammal Control Agent Relationship Specialty Start Date End Date Luis Wade MD [address] [facility] [address] [place] [address] PCP - General Internal Medicine 11/14/21 Ernesto Cruz MD [address] [place] [address] Consulting Physician Cardiovascular Disease 08/20/23 Zackery Lambert MD [address] [place] [address] Casino Assistant Manager Transplant 10/17/23 Angela Penn, RN [address] [facility] [address] [place] [id number] Heart Failure Coordinator [employer] And Lathe Operator 10/17/23
--- OUTSIDE RECORDS SUMMARY | 2025-04-26 10:13 | XMS_ITS | Data Portability ---
Author Organization [place] [facility] [employer], Main Office Address [address] [place] [address] Care Team Providers Care Lease Purchase Driver Name Role Phone JOSTIN WADE Primary Care Provider JOSTIN WADE Referring Provider Assessment Encounter Date Assessment Date Assessment LastModified by Organization Details LastModified Time 04/15/2025 04/15/2025 This note is dictated and transcribed by [employer]. Hearing Aid Mechanic variances may occur. Despite proofreading, typographical errors may occur. Occasional wrong-word or 'mvpkl-x-ioot' substitutions may have occurred due to the inherent limitations of voice recording. Read the chart carefully and recognize, using context, where substitutions have occurred. [email or web address] Not available 04/15/2025 10:47:51 Plan of Treatment Reminders Order Date Submit Date Provider Last Modified By Organization Details Last Modified Time Details Appointments Establish ed Patient 15 2024 11:30A Dell Oscar DPM Not available Not available Not available Lab HbA1c (hemoglob in A1c), blood 2024 025 [facility], [address], [place], [address], 03/17/2025 02:42:16 HbA1c (hemoglob in A1c), blood 2024 025 [email or web address] [facility], [address], [place], [address], 11/26/2024 17:04:12 lipid panel, serum 2024 025 [facility], [address] [place], [address], 11/10/2024 14:01:50 CMP, serum or plasma 2024 025 [facility], [address], [place], [address], 11/10/2024 14:01:56 T4, free, serum 2024 025 [place] [facility], [address], [place], [address], 11/10/2024 14:39:06 TSH, serum or plasma 2024 025 [employer] [facility], [address], [place], [address], 11/10/2024 14:41:23 CBC w/ auto diff 2024 025 [facility], [address], [place], [address], 11/10/2024 13:51:06 levetirac etam, serum 2023 024 [facility], [address] [place] [address], [address], 04/04/2024 13:09:29 Referral None recorded. Procedures None recorded. Surgeries None recorded. Imaging XR, foot, 3 or more view [address] [place] [address] Podiatry [place], [address], [place], [address], 04/15/2025 14:02:24 XR, foot, 3 or more view 2024 025 kannan [facility] Podiatry [place], [address], [place], [address], 04/15/2025 14:02:24 Medication Orders meloxicam 15 mg tablet 2024 025 [place] [facility] [place], [address], 11/10/2024 12:01:24 Patient TargetsNo targets recorded. Patient Instructions Encounter Date Encounter Id Patient Instructions Last Modified By Organization Details Last Modified Time 04/01/2024 [id number] Partial complex seizures, hypertension, hyperlipidemia, paroxysmal atrial fibrillation. Will check a Keppra level on the patient. Will increase her Keppra to 750 mg 3 times daily for the next two days. Instructed to see her neurologist. See if there is any additional symptoms if any recurrence let us know immediately. Orders: 1. Needs to be set up with her neurologist over at [facility] for possible recurrent seizures. Keep Appointment: Sat 09:20 AM [place] Portions of the record may have been created with voice recognition software. Occasional wrong-word or hhequ-b-zxne substitutions may have occurred due to the inherent limitations of voice recognition software. Read the chart carefully and recognize, using context, where substitutions have occurred. [email or web address] Not available 04/01/2024 11:48:11 05/07/2024 [id number] Additional Orders and/or Directives: 1. CT scan of the abdomen and pelvis with contrast for abdominal pain and hematuria. Keep Appointment: Sat 09:20 AM [place] Portions of the record may have been created with voice recognition software. Occasional wrong-word or wpobg-h-btel substitutions may have occurred due to the inherent limitations of voice recognition software. Read the chart carefully and recognize, using context, where substitutions have occurred. [email or web address] Not available 05/07/2024 11:09:44 11/10/2024 [id number] Follow-up hypertension, paroxysmal atrial fibrillation, hyperlipidemia, hyperglycemia as well as GERD all clinically stable. Will check blood work consisting of CBC, CMP, lipid, thyroid and hemoglobin A1c level. Will try to give a trial of Ozempic and see if there is any improvement in glucose control as well as weight. Give a trial some meloxicam 15 mg once daily to see if there is any improvement in arthritic complaints. Clinically stable otherwise. Will follow-up in four months Additional Orders - Directives - Recommendations 1. Give a trial of some Ozempic because of hyperglycemia as well as weight loss Follow Up: 4 Months Approximate Date: 03/10/2025 Portions of record are template driven. When necessary additional context will be provided. Additionally some portions have been created with voice recognition software. Occasional wrong-word or esidg-t-fosn substitutions may have occurred due to the inherent limitations of voice recognition software. Read the chart carefully and recognize, using context, where substitutions may have occurred. Created: Jostin Wade M.D. 11.10.2024 11:01 AM [email or web address] Not available 11/10/2024 12:01:20 03/16/2025 [id number] Medicare wellnes s evaluation risk assessment stable. Follow-up for seizure disorder, hypertension, GERD, hyperlipidemia and history of hyperglycemia. All clinically stable. Overall has been doing well. Will check a hemoglobin A1c level. Will continue on current medications. Has not had any additional seizure activity since February 20, 2025. Is due for a bone density scan. Additional Orders - Directives - Recommendations 1. Bone density scan Follow Up: 4 Months Approximate Date: 07/14/2025 Portions of record are template driven. When necessary additional context will be provided. Additionally some portions have been created with voice recognition software. Occasional wrong-word or btzzx-e-cisu substitutions may have occurred due to the inherent limitations of voice recognition software. Read the chart carefully and recognize, using context, where substitutions may have occurred. Created: Jostin Wade M.D. 03.16.2025 10:30 AM Not available 03/16/2025 11:30:43 Reason for Referral None Reported. Results Created Date Observation Date Name Description Value Unit Range Abnormal Flag Note LastModifiedBy Organization Detail LastModifiedTime 04/01/20 24 04/04/2024 LEVRODNEY CABALLERO (KE RA), S levetiraceta m, S 24.5 ug/mL 10.0-4 0.0 Perfo rmed at: [facility] [place] [address] [facility] , [place] [address] Lab Direc tor: Rody auguste MD, Phone : [phone] Not Available [facility] (Lab) [address] [place], [address], 04/04/2024 13:09:29 06/16/20 24 06/16/2024 RHEUM ATOID FACTO R rf <8.6 IU/mL 0.0-11 .9 Not Available [facility] (Lab) [address] [place], [address], 06/16/2024 20:56:59 06/16/20 24 06/17/2024 C3 COMPL EMENT C3 complement 151 mg/dL 88-165 Not Available [facility] (Lab) [address] [place], [address], 06/17/2024 06:47:20 06/16/20 24 06/17/2024 C4 COMPL EMENT C4 complement 29.4 mg/dL 14-44 Not Available [facility] (Lab) [address] [place], [address], 06/17/2024 06:47:23 06/16/20 24 06/17/2024 C REACT RICH PROTE IN,UL TRA SENS C-reactive protein 0.17 mg/dL 0.0-0. 5 Not Available [facility] (Lab) [address] [place], [address], 06/17/2024 06:47:29 06/16/20 24 06/18/2024 IMMUN OGLOB ULIN IGA, QN, SERUM immunoglobul in A, qn, serum 233 mg/dL 64-422 Perfo rmed at: [facility] [address] [place] [address] Lab Direc tor: Dewayne rodrigues PhD, Phone : [phone] Not Available [facility] (Lab) [address] [place], [address], 06/18/2024 12:13:07 06/16/20 24 06/18/2024 IMMUN OGLOB ULIN IGG, QN, SERUM immunoglobul in g, qn, serum 854 mg/dL 586-16 02 [facility] [address] [place] [address] Lab Direc tor: Dewayne rodrigues PhD, Phone : [phone] Not Available [facility] (Lab) [address] [place], [address], 06/18/2024 12:13:09 06/16/20 24 06/18/2024 IMMUN OGLOB ULIN IGM, QN, SERUM immunoglobul in M, qn, serum 156 mg/dL 26-217 Perfo rmed at: [facility] n [address] [facility], [place], [place] [id number] Lab Direc tor: Dewayne rodrigues PhD, Phone : [phone] Not Available [facility] (Lab) [address] [place], [address], 06/18/2024 13:11:30 06/16/20 24 06/18/2024 ANTI- DSDNA ANTIB ODIES anti-DNA (ds) Ab qn 1 IU/mL 0-9 Negat rich <5 Equiv ocal 5 - 9 Posit rich >9 Perfo rmed at: [facility] n [address] [place] [address] Lab Direc tor: Dewayne rodrigues PhD, Phone : [phone] Not Available [facility] (Lab) [address] [place], [address], 06/18/2024 14:13:20 06/16/20 24 06/18/2024 ANTIS CLERO DERMA -70 ANTIB ODIES antisclerode rma-70 antibodies <0.2 ai 0.0-0. 9 [facility] [address] [place], [place] [address] Lab Direc tor: Dewayne rodrigues PhD, Phone : [phone] Not Available [facility] (Lab) [address] [place], [address], 06/18/2024 14:13:22 06/16/20 24 06/18/2024 SM/RN P ANTIB ODIES garcia/crop grain or livestock farmer antibodies <0.2 ai 0.0-0. 9 [facility] [address] [employer] [facility], [facility], [place] [address] Lab Direc tor: Dewayne rodrigues PhD, Phone : [phone] Not Available [facility] (Lab) [address] [place], [address], 06/18/2024 14:13:25 06/16/20 24 06/18/2024 ANTI- CCP ANTIB ODIES IGG/I GA ccp antibodies IgG/IgA 6 units 0-19 Negat rich <20 Weak posit rich 20 - 39 Moder ate posit rich 40 - 59 Stron g posit rich >59 Perfo rmed at: [facility] [address] [facility] [employer] [facility], [place] [address] Lab Direc tor: Dewayne rodrigues PhD, Phone : [phone] Not Available [facility] (Lab) [address] [place], [address], 06/18/2024 15:11:39 06/16/20 24 06/18/2024 SJOGR EN'S AB, ANTI- SS-A/ -SS-B sjogren's anti-ss-A <0.2 ai 0.0-0. 9 Not Available [facility] (Lab) [address] [place], [address], 06/18/2024 15:11:41 06/16/20 24 06/18/2024 SJOGR EN'S AB, ANTI- SS-A/ -SS-B sjogren's anti-ss-B <0.2 ai 0.0-0. 9 Perfo rmed at: [facility] n [address] [employer] [facility], [place] [address] Lab Direc tor: Dewayne rodrigues PhD, Phone : [phone] Not Available [facility] (Lab) [address] [place], [address], 06/18/2024 15:11:41 06/16/20 24 06/18/2024 LYME, TOTAL AB TEST/ REFLE X lyme total antibody NEGATI VE negati ve Lyme antib odies not detec long. Refle x testi ng is not indic ated. No labor atory evide nce of infec tion with B. burgd orfer i (Lyme disea se). Negat rich resul ts may occur in patie nts recen tly infec long (less than or equal to 14 days) with B. burgd orfer i. If recen t infec tion is suspe cted, repea t testi ng on a new sampl e colle cted in 7 to 14 days is recom kera brar. Perfo rmed at: [facility] [address] [place] [address] Lab Direc tor: Dewayne rodrigues PhD, Phone : [phone] Not Available [facility] (Lab) [address] [place], [address], 06/18/2024 15:11:43 06/16/20 24 06/18/2024 LAI SCREE N RFX TITER /SEAN ZHANE antinuclear antibodies, ifa Negati ve Negat rich <1:80 Borde rline 1:80 Posit rich >1:80 ICAP mamadou arias re: AC-0 For more infor prisca helms about Hep-2 cell patte rns use ANApa ttern s.org , the offic ial websi te for the Inter natio nal Conse nsus on Antin uclea r Antib yovany (LAI) Patte rns (ICAP ). Perfo rmed at: [facility] n [address] [place] [address] Lab Direc tor: Dewayne rodrigues PhD, Phone : [phone] Not Available [facility] (Lab) [address] [place], [address], 06/18/2024 16:13:03 06/16/20 24 06/18/2024 COMPL EMENT , TOTAL (CH50 ) complement, total (ch50) >60 U/mL >41 Age Male Femal e 1 - 30 days Not Estab . Not Estab . 31 days - 6 month s >32 >20 7 month s - 17 years >39 >39 >17 years >41 >41 NOT E: The adult (>17 years ) refer ence inter josselyn range is used to flag abnor mals on this repor t. If the patie nt is 17 years old or young er, use the table above to deter mine out of range value s. Perfo rmed at: - [facility] [address], [place] [address] Lab Direc tor: Dewayne rodrigues PhD, Phone : [phone] Not Available [facility] (Lab) [address] [place], [address], 06/18/2024 16:13:05 06/16/2006/18/2024 IGG, SUBCL ASSES (1-4) immunoglobul in g, qn, serum 854 mg/dL 586-16 02 Not Available [facility] (Lab) [address] [place], [address], 06/18/2024 18:09:24 06/16/2006/18/2024 IGG, SUBCL ASSES (1-4) IgG, subclass 1 408 mg/dL 248-81 0 Not Available [facility] (Lab) [address] [place], [address], 06/18/2024 18:09:24 06/16/2006/18/2024 IGG, SUBCL ASSES (1-4) IgG, subclass 2 249 mg/dL 130-55 5 Not Available [facility] (Lab) [address] [place], [address], 06/18/2024 18:09:24 06/16/20 24 06/18/2024 IGG, SUBCL ASSES (1-4) IgG, subclass 3 54 mg/dL 15-102 Not Available [facility] (Lab) [address] [place], [address], 06/18/2024 18:09:24 06/16/20 24 06/18/2024 IGG, SUBCL ASSES (1-4) IgG, subclass 4 16 mg/dL 2-96 Perfo rmed at: [facility] [address] [place] [id number] Lab Direc tor: Dewayne rodrigues PhD, Phone : [phone] Not Available [facility] (Lab) [address] [place], [address], 06/18/2024 18:09:24 06/16/20 24 06/19/2024 ANTI- MPO (P-AN CA) ANTIB ODIES anti-mpo (myeloperoxi dase) Ab <0.2 units 0.0-0. 9 Perfo rmed at: [facility] [place] [address] [place] [address] Lab Direc tor: Rody auguste MD, Phone : [phone] Not Available [facility] (Lab) [address] [place], [address], 06/19/2024 21:07:56 06/16/2006/19/2024 ANTIP ROTEI NASE 3(PR3 )/C-A NCA anti-pr3 (proteinase 3) Ab <0.2 units 0.0-0. 9 Perfo rmed at: [facility] [place] [address] [place] [address] Lab Direc tor: Rody auguste MD, Phone : [phone] Not Available [facility] (Lab) [address] [place], [address], 06/19/2024 21:07:59 06/16/2006/22/2024 MISCE LLANE OUS TEST misc test SEE COMMEN T SENT TO REFER ENCE LAB; SEE SEPAR ATE REPOR T Not Available [facility] (Lab) [address] [place], [address], 06/22/2024 13:22:26 06/23/20 24 06/24/2024 RPR SCREE N RPR NON-RE ACTIVE nonrea ctive Not Available [facility] (Lab) [address] [place], [address], 06/24/2024 09:03:46 06/23/20 24 06/26/2024 LUPUS ANTIC OAGUL ANT W/REF ANTONIO PTT-la 33.4 sec 0.0-43 .5 Not Available [facility] (Lab) [address] [place], [address], 06/26/2024 02:09:52 06/23/20 24 06/26/2024 LUPUS ANTIC OAGUL ANT W/REF ANTONIO drvvt 35.9 sec 0.0-47 .0 Not Available [facility] (Lab) [address] [place], [address], 06/26/2024 02:09:52 06/23/20 24 06/26/2024 LUPUS ANTIC OAGUL ANT W/REF ANTONIO lupus reflex interpretati on Commen t: No lupus antic oagul ant was detec long. Perfo rmed at: [facility] [place] [address] [facility] , [place] [address] Lab Direc tor: Rody auguste MD, Phone : [phone] Not Available [facility] (Lab) [address] [place], [address], 06/26/2024 02:09:52 06/25/20 24 06/27/2024 CARDI OLIPI N AB PANEL G/A/M QT anticardioli pin Ab,IgG,qn 32 gpl_U /mL 0-14 high Negat rich: <15 Indet ermin ate: 15 - 20 Low-M ed Posit rich: >20 - 80 High Posit rich: >80 Not Available [facility] (Lab) [address] [place], [address], 06/27/2024 15:09:00 06/25/20 24 06/27/2024 CARDI OLIPI N AB PANEL G/A/M QT anticardioli pin Ab,IgM,qn 14 mpl_U /mL 0-12 high Negat rich: <13 Indet ermin ate: 13 - 20 Low-M ed Posit rich: >20 - 80 High Posit rich: >80 Not Available [facility] (Lab) [address] [place], [address], 06/27/2024 15:09:00 06/25/20 24 06/27/2024 CARDI OLIPI N AB PANEL G/A/M QT anticardioli pin Ab,IgA,qn 13 apl_U /mL 0-11 high Negat rich: <12 Indet ermin ate: 12 - 20 Low-M ed Posit rich: >20 - 80 High Posit rich: >80 Perfo rmed at: [facility] [place] [address] Lab Direc tor: Dewayne rodrigues PhD, Phone : [phone] Not Available [facility] (Lab) [address] [place], [address], 06/27/2024 15:09:00 06/25/20 24 06/29/2024 BETA- 2 GLYCO PROTE IN I AB,G, A,M beta-2 glycoprotein I Ab, IgA 15 gpi_I gA_un its 0-25 . The refer ence inter josselyn refle cts a 3SD or 99th perce ntile inter josselyn, which is thoug ht to repre sent a poten tiall y clini cordell signi fican t resul t in accor dance with the Inter natio nal Conse nsus State ment on the class ifica tion crite maegan for defin itive antip hosph olipi d syndr ome (APS) . J Throm b Haem 2006; 4:295 -306. Not Available [facility] (Lab) [address] [place], [address], 06/29/2024 18:09:00 06/25/20 24 06/29/2024 BETA- 2 GLYCO PROTE IN I AB,G, A,M beta-2 glycoprotein I Ab, IgG <9 gpi_I gG_un its 0-20 . The refer ence inter josselyn refle cts a 3SD or 99th perce ntile inter josselyn, which is thoug ht to repre sent a poten tiall y clini cordell signi fican t resul t in accor dance with the Inter natio nal Conse nsus State ment on the class ifica tion crite maegan for defin itive antip hosph olipi d syndr ome (APS) . J Throm b Haem 2006; 4:295 -306. Not Available [facility] (Lab) [address] [place], [address], 06/29/2024 18:09:00 06/25/20 24 06/29/2024 BETA- 2 GLYCO PROTE IN I AB,G, A,M beta-2 glycoprotein I Ab, IgM 10 gpi_I gM_un its 0-32 . The refer ence inter josselyn refle cts a 3SD or 99th perce ntile inter josselyn, which is thoug ht to repre sent a poten tiall y clini cordell signi fican t resul t in accor dance with the Inter natio nal Conse nsus State ment on the class ifica tion crite magean for defin itive antip hosph olipi d syndr ome (APS) . J Throm b Haem 2006; 4:295 -306. Perfo rmed at: - [facility] [address] [place] [address] Lab Direc tor: Dewayne rodrigues PhD, Phone : [phone] Not Available [facility] (Lab) [address] [place], [address], 06/29/2024 18:09:00 06/25/20 24 06/30/2024 MISCE LLANE OUS TEST misc test SEE COMMEN T SENT TO REFER ENCE LAB; SEE SEPAR ATE REPOR T Not Available [facility] (Lab) [address] [place], [address], 06/30/2024 11:27:27 09/01/20 24 09/09/2024 ANTIP HOSPH OLIPI D ANTIB YOVANY PANEL comment SEE NOTE For furth er inqui zoey regar ding speci fic clini demi probl ems or coagu latio n labor atory test issue s, pleas e call a [facility] Custo riana Suppo rt Repre senta tive, [phone] for refer ral to the Medic al Direc tor of Zeusschandni latdirk n. Not Available [facility] [place] [address] [place], [address], 09/09/2024 15:37:38 09/01/20 24 09/09/2024 ANTIP HOSPH OLIPI D ANTIB YOVANY PANEL B2 glycoprotein I (IgG)Ab <2.0 U/mL Value Inter preta tion ----- ----- ----- ---- <20.0 Antib yovany not detec long > or = 20.0 Antib yovany detec long Not Available [facility] [place] [address] [place], [address], 09/09/2024 15:37:38 09/01/20 24 09/09/2024 ANTIP HOSPH OLIPI D ANTIB YOVANY PANEL B2 glycoprotein I (IgA)Ab 3.2 U/mL Value Inter preta tion ----- ----- ----- ---- <20.0 Antib yovany not detec long > or = 20.0 Antib yovany detec long Not Available [facility] [place] [address] [place], [address], 09/09/2024 15:37:38 09/01/20 24 09/09/2024 ANTIP HOSPH OLIPI D ANTIB YOVANY PANEL B2 glycoprotein I (IgM)Ab 13.7 U/mL Value Inter preta tion ----- ----- ----- ---- <20.0 Antib yovany not detec long > or = 20.0 Antib yovany detec long Not Available [address], [address], 09/09/2024 15:37:38 09/01/20 24 09/09/2024 ANTIP HOSPH OLIPI D ANTIB YOVANY PANEL phosphatidyl serine/ prothrombin Ab (IgG) <9 U < or = 30 For addit ional darinelr henrietta hua e refer to http: //[facility] analia.que stdia gnost ics.c om/fa q/FAQ 262 (This link is being provi ded for inforaphael cope nal/e ducat ional purpo ses only. ) Not Available [address], [address], 09/09/2024 15:37:38 09/01/20 24 09/09/2024 ANTIP HOSPH OLIPI D ANTIB YOVANY PANEL phosphatidyl serine/ prothrombin Ab (IgM) 10 U < or = 30 For addit ional henrietta hoover e refer to http: //[facility] n.que stdia gnost ics.c om/fa q/FAQ 262 (This link is being provi ded for infor matio nal/e ducat ional purpo ses only. ) Not Available [address], [address], 09/09/2024 15:37:38 09/01/20 24 09/09/2024 ANTIP HOSPH OLIPI D ANTIB YOVANY PANEL cardiolipin Ab (IgA) 2.4 apl-U /mL Not Available [address], [address], 09/09/2024 15:37:38 09/01/20 24 09/09/2024 ANTIP HOSPH OLIPI D ANTIB YOVANY PANEL cardiolipin Ab (IgG) <2.0 gpl-U /mL Not Available [facility] [address] [place], [address], 09/09/2024 15:37:38 09/01/20 24 09/09/2024 ANTIP HOSPH OLIPI D ANTIB YOVANY PANEL cardiolipin Ab (IgM) 10.7 mpl-U /mL The antip hosph olipi d antib yovany syndr ome (APS) is a clini demi-p athol ogic corre latio n that inclu ronnie a clini demi event (e.g. arter ial or venou s throm bosis , pregn mandi morbi dity) and persi stent posit rich antip hosph olipi d antib odies (IgM, IgG Cardi olipi n or b2GPI antib odies great er than the 99th perce ntile ; or a lupus antic oagul ant). Inter natio nal conse nsus guide lines for APS sugge st waiti ng at least 12 weeks befor e retes ting to confi rm antib yovany persi stenc e. The Syste yobani Lupus Inter natio nal Colla borat ing Clini cs immun ologi demi class ifica tion crite maegan for syste yobani lupus eryth emato son (SLE) inclu de testi ng for isoty pe IgA, which has yet to be incor porat ed into APS crite maegan. Low level antip hosph olipi d antib odies may somet imes be detec long in the setti ng of infec tion, drug thera py or aging . For addit ional infor henrietta hua e refer to http: //raymond helms.que stdia gnost ics.c om/fa q/FAQ 109 (This link is being provi ded for infor prisca nal/e ducat ional purpo ses only. ) Cardi olipi n Ab (IgA) Value Inter preta tion ----- ----- ----- ---- <20.0 Antib yovany not detec long > or = 20.0 Antib yovany detec long Cardi olipi n Ab (IgG) Value Inter preta tion ----- ----- ----- ---- <20.0 Antib yovany not detec long > or = 20.0 Antib yovany detec long Cardi olipi n Ab (IgM) Value Inter preta tion ----- ----- ----- ---- <20.0 Antib yovany not detec long > or = 20.0 Antib yovany detec long Not Available [facility] [address], [address], 09/09/2024 15:37:38 09/01/2009/09/2024 LUPUS ANTIC OAGUL ANT EVALU ATION WITH REFLE X lupus anticoagulan t not detect ed A Lupus Antic oagul ant is not detec long. Commo n cause s for a prolo nged scree n and negat rich confi rmato ry test inclu de facto r defic ienci es or antic oagul ant thera py. For more infor prisca helms on this test, go to: http: //raymond seals gnsy ics.c om/fa q/FAQ 01v2 (This link is being provi ded for infor prisca laird/ educa ravindra l purpo ses only. ) ----- ----- ----- ----- ----- ----- ----- ----- ----- ----- ----- - This inter preta tion is based on the follo wing test resul ts: Not Available [facility] [address], [address], 09/09/2024 15:37:39 09/01/2009/09/2024 LUPUS ANTIC OAGUL ANT EVALU ATION WITH REFLE X PTT-la screen 29 sec < or = 40 Not Available [facility] [address], [address], 09/09/2024 15:37:39 09/01/20 24 09/09/2024 LUPUS ANTIC OAGUL ANT EVALU ATION WITH REFLE X drvvt screen 48 sec < or = 45 high Not Available [address], [address], 09/09/2024 15:37:39 09/01/20 24 09/09/2024 DRVVT CONFI RM drvvt confirm NEGATI VE negati ve Not Available [address], [address], 09/09/2024 15:37:41 09/01/20 24 09/09/2024 RPR (MAE TOR) W/REF L TITER RPR (monitor) w/refl titer NON-RE ACTIVE non-re active normal Not Available [address], [address], 09/09/2024 15:37:41 11/10/19 25 11/10/2024 CBC/C OMPLE TE BLD COUNT W/DIF F white blood cells 4.7 x10'3 /uL 4.2-10 .8 Not Available [facility] (Lab) [address] [place], [address], 11/10/2024 13:51:06 11/10/19 25 11/10/2024 CBC/C OMPLE TE BLD COUNT W/DIF F red blood cells 4.14 x10'6 /uL 3.80-5 .20 Not Available [facility] (Lab) [address] [place], [address], 11/10/2024 13:51:06 11/10/19 25 11/10/2024 CBC/C OMPLE TE BLD COUNT W/DIF F hemoglobin 13.1 g/dL 12.0-1 5.6 Not Available [facility] (Lab) [address] [place], [address], 11/10/2024 13:51:06 11/10/19 25 11/10/2024 CBC/C OMPLE TE BLD COUNT W/DIF F hematocrit 38.6 % 35.7-4 5.7 Not Available [facility] (Lab) [address] [place], [address], 11/10/2024 13:51:06 11/10/19 25 11/10/2024 CBC/C OMPLE TE BLD COUNT W/DIF F mean red cell volume 93.2 fL 82.0-9 9.0 Not Available [facility] (Lab) [address] [place], [address], 11/10/2024 13:51:06 11/10/19 25 11/10/2024 CBC/C OMPLE TE BLD COUNT W/DIF F mean red cell hemoglobin 31.6 pg 27.0-3 3.0 Not Available [facility] (Lab) [address] [place], [address], 11/10/2024 13:51:06 11/10/19 25 11/10/2024 CBC/C OMPLE TE BLD COUNT W/DIF F mean RBC HGB concentratio n 33.9 g/dL 31.0-3 6.0 Not Available [facility] (Lab) [address] [place], [address], 11/10/2024 13:51:06 11/10/19 25 11/10/2024 CBC/C OMPLE TE BLD COUNT W/DIF F red cell distribution width 12.8 % 11.8-1 5.5 Not Available [facility] (Lab) [address] [place], [address], 11/10/2024 13:51:06 11/10/19 25 11/10/2024 CBC/C OMPLE TE BLD COUNT W/DIF F platelets 186 x10'3 /uL 150-40 0 Not Available [facility] (Lab) [address] [place], [address], 11/10/2024 13:51:06 11/10/19 25 11/10/2024 CBC/C OMPLE TE BLD COUNT W/DIF F mean platelet volume 12.1 fL 9.0-12 .4 Not Available [facility] (Lab) [address] [place], [address], 11/10/2024 13:51:06 11/10/19 25 11/10/2024 CBC/C OMPLE TE BLD COUNT W/DIF F neutrophils 63.9 % 39.0-7 2.0 Not Available [facility] (Lab) [address] [place], [address], 11/10/2024 13:51:06 11/10/19 25 11/10/2024 CBC/C OMPLE TE BLD COUNT W/DIF F lymphocytes 23.3 % 16.0-4 7.0 Not Available [facility] (Lab) [address] [place], [address], 11/10/2024 13:51:06 11/10/1911/10/2024 CBC/C OMPLE TE BLD COUNT W/DIF F monocytes 10.1 % 5.0-12 .0 Not Available [facility] (Lab) [address] [place], [address], 11/10/2024 13:51:06 11/10/19 25 11/10/2024 CBC/C OMPLE TE BLD COUNT W/DIF F eosinophils 1.9 % 1.0-7. 0 Not Available [facility] (Lab) [address] [place], [address], 11/10/2024 13:51:06 11/10/19 25 11/10/2024 CBC/C OMPLE TE BLD COUNT W/DIF F basophils 0.6 % 0.0-2. 0 Not Available [facility] (Lab) [address] [place], [address], 11/10/2024 13:51:06 11/10/19 25 11/10/2024 CBC/C OMPLE TE BLD COUNT W/DIF F immature granulocytes 0.2 % 0.00-0 .50 Not Available [facility] (Lab) [address] [place], [address], 11/10/2024 13:51:06 11/10/19 25 11/10/2024 CBC/C OMPLE TE BLD COUNT W/DIF F neutrophils, absolute count 2.98 x10'3 /uL 1.5-8. 0 Not Available [facility] (Lab) [address] [place], [address], 11/10/2024 13:51:06 11/10/19 25 11/10/2024 CBC/C OMPLE TE BLD COUNT W/DIF F lymphocytes, absolute count 1.09 x10'3 /uL 1.07-3 .43 Not Available [facility] (Lab) [address] [place], [address], 11/10/2024 13:51:06 11/10/19 25 11/10/2024 CBC/C OMPLE TE BLD COUNT W/DIF F monocytes, absolute count 0.47 x10'3 /uL 0.29-0 .99 Not Available [facility] (Lab) [address] [place], [address], 11/10/2024 13:51:06 11/10/19 25 11/10/2024 CBC/C OMPLE TE BLD COUNT W/DIF F eosinophils, absolute count 0.09 x10'3 /uL 0.02-0 .53 Not Available [facility] (Lab) [address] [place], [address], 11/10/2024 13:51:06 11/10/19 25 11/10/2024 CBC/C OMPLE TE BLD COUNT W/DIF F basophils, absolute count 0.03 x10'3 /uL 0.01-0 .08 Not Available [facility] (Lab) [address] [place], [address], 11/10/2024 13:51:06 11/10/19 25 11/10/2024 CBC/C OMPLE TE BLD COUNT W/DIF F immature granulocytes ,absolute 0.01 x10'3 /uL 0.00-0 .05 Not Available [facility] (Lab) [address] [place], [address], 11/10/2024 13:51:06 11/10/19 25 11/10/2024 CBC/C OMPLE TE BLD COUNT W/DIF F nucleated red blood cells 0.0 % -0 Not Available [facility] (Lab) [address] [place], [address], 11/10/2024 13:51:06 11/10/19 25 11/10/2024 CBC/C OMPLE TE BLD COUNT W/DIF F NRBC# 0.00 x10'3 /uL Not Available [facility] (Lab) [address] [place], [address], 11/10/2024 13:51:06 11/10/19 25 11/10/2024 LIPID PANEL cholesterol 178 mg/dL 140-19 9 NIH JOSUE NSUS RECOM MENDA TION FOR MARÍA STERO L: ADULT CHILD LOW RISK: <200 <170 BORDE RLINE : <200- 239 ----- HIGH RISK: >240 >200 Not Available [facility] (Lab) [address] [place], [address], 11/10/2024 14:01:50 11/10/19 25 11/10/2024 LIPID PANEL triglyceride s 180 mg/dL 0-150 high NIH JOSUE NSUS REPOR T RECOM MENDA TION FOR TRIGL YCERI RONNIE: ADULT CHILD LOW RISK: <150 ----- BODER LINE: 150-1 99 ----- HIGH RISK: >200 ----- Not Available [facility] (Lab) [address] [place], [address], 11/10/2024 14:01:50 11/10/19 25 11/10/2024 LIPID PANEL HDL cholesterol 58 mg/dL 40- Not Available [facility] (Lab) [address] [place], [address], 11/10/2024 14:01:50 11/10/19 25 11/10/2024 LIPID PANEL LDL cholesterol, calculated 84 mg/dL 0-130 NIH JOSUE NSUS REPOR T RECOM MENDA TIONS FOR LDL: ADULT CHILD LOW RISK <130 <110 (OPTI MAL LDL) <100 ----- SIXTODE RLINE : 130-1 59 ----- HIGH RISK: >160 >130 A TRIGL YCERI DE RESUL T >400 INVAL IDATE S THE CALCU LATIO N FOR LDL FRACT IONAT ION - THE LDL RESUL T WILL NOT BE REPOR LONG. Not Available [facility] (Lab) [address] [place], [address], 11/10/2024 14:01:50 11/10/19 25 11/10/2024 COMPR EHENS RICH METAB OLIC PANEL sodium 139 mmol/ L 137-14 5 Not Available [facility] (Lab) [address] [place], [address], 11/10/2024 14:01:56 11/10/19 25 11/10/2024 COMPR EHENS RICH METAB OLIC PANEL potassium 4.5 mmol/ L 3.5-5. 1 Not Available [facility] (Lab) [address] [place], [address], 11/10/2024 14:01:56 11/10/19 25 11/10/2024 COMPR EHENS RICH METAB OLIC PANEL chloride 108 mmol/ L 98-107 high Not Available [facility] (Lab) [address] [place], [address], 11/10/2024 14:01:56 11/10/19 25 11/10/2024 COMPR EHENS RICH METAB OLIC PANEL carbon dioxide 26 mmol/ L 22-30 Not Available [facility] (Lab) [address] [place], [address], 11/10/2024 14:01:56 11/10/19 25 11/10/2024 COMPR EHENS RICH METAB OLIC PANEL anion gap 9.5 mmol/ L 14-22 low Not Available [facility] (Lab) [address] [place], [address], 11/10/2024 14:01:56 11/10/19 25 11/10/2024 COMPR EHENS RICH METAB OLIC PANEL glucose 93 mg/dL 70-99 Not Available [facility] (Lab) [address] [place], [address], 11/10/2024 14:01:56 11/10/19 25 11/10/2024 COMPR EHENS RICH METAB OLIC PANEL BUN 22 mg/dL 8-19 high Not Available [facility] (Lab) [address] [place], [address], 11/10/2024 14:01:56 11/10/19 25 11/10/2024 COMPR EHENS RICH METAB OLIC PANEL creatinine 0.72 mg/dL 0.66-1 .25 Not Available [facility] (Lab) [address] [place], [address], 11/10/2024 14:01:56 11/10/19 25 11/10/2024 COMPR EHENS RICH METAB OLIC PANEL GFR >60 Refer ence Range : [place] [facility] GFR Healt hy Adult : >60 mL/mi n/1.7 3 m2 Chron ic Kidne y Disea se: 15-60 mL/mi n/1.7 3 m2 Kidne y Failu re: <15/m L/min /1.73 m2 www.n iddk. nih.g ov The MDRD study equat ion has not been valid ated in child keyona <18 years of age; pregn ant women ; the elder ly >85 years of age; or in some racia l or ethni c subgr oups, such as Hispa nics. Outsi de the valid ated rianna eters , estim ated GFR is less accur ate, requi ring clini demi judgm ent on a case- by-ca se basis . Clini demi inter preta tion for other races and ages must be made by the clini jose carlos. The MDRD study equat ion has not been valid ated for the evalu ation of serum creat inine relat ed to nutri ravindra l statu s or medic ation usage . For perso ns <18 years of age, a pedia tric GFR calcu lator is avail able on the [facility] websi te: https :[email or web address] [email or web address].sahil chand.o rg/pr ofess ional s/kdo qi/gf r_cal culat or Not Available [facility] (Lab) [address] [place], [address], 11/10/2024 14:01:56 11/10/19 25 11/10/2024 COMPR EHENS RICH METAB OLIC PANEL alkaline phosphatase 86 U/L 38-126 Not Available [facility] (Lab) [address] [place], [address], 11/10/2024 14:01:56 11/10/19 25 11/10/2024 COMPR EHENS RICH METAB OLIC PANEL alanine aminotransfe rase 29 U/L 0-35 Not Available [facility] (Lab) [address] [place], [address], 11/10/2024 14:01:56 11/10/19 25 11/10/2024 COMPR EHENS RICH METAB OLIC PANEL aspartate aminotransfe rase 37 U/L 15-37 Not Available [facility] (Lab) [address] [place], [address], 11/10/2024 14:01:56 11/10/19 25 11/10/2024 COMPR EHENS RICH METAB OLIC PANEL bilirubin, total 0.90 mg/dL 0.20-1 .30 Not Available [facility] (Lab) [address] [place], [address], 11/10/2024 14:01:56 11/10/19 25 11/10/2024 COMPR EHENS RICH METAB OLIC PANEL calcium 9.4 mg/dL 8.4-10 .2 Not Available [facility] (Lab) [address] [place], [address], 11/10/2024 14:01:56 11/10/19 25 11/10/2024 COMPR EHENS RICH METAB OLIC PANEL total protein 6.8 g/dL 6.3-8. 2 Not Available [facility] (Lab) [address] [place], [address], 11/10/2024 14:01:56 11/10/19 25 11/10/2024 COMPR EHENS RICH METAB OLIC PANEL albumin 4.4 g/dL 3.0-4. 4 Not Available [facility] (Lab) [address] [place], [address], 11/10/2024 14:01:56 11/10/19 25 11/10/2024 COMPR EHENS RICH METAB OLIC PANEL globulin 2.4 g/dL 2.6-4. 2 low Not Available [facility] (Lab) [address] [place], [address], 11/10/2024 14:01:56 11/10/19 25 11/10/2024 COMPR EHENS RICH METAB OLIC PANEL A/G ratio 1.8 ratio 1.0-2. 0 Not Available [facility] (Lab) [address] [place], [address], 11/10/2024 14:01:56 11/10/19 25 11/10/2024 T4 FREE free T4 0.98 NG/dL 0.78-2 .19 Not Available [facility] (Lab) [address] [place], [address], 11/10/2024 14:39:06 11/10/19 25 11/10/2024 TSH thyroid-stim ulating hormone 2.800 uIU/m L 0.465- 4.680 Not Available [facility] (Lab) [address] [place], [address], 11/10/2024 14:41:23 11/10/19 25 11/10/2024 HEMOG LOBIN A1C HA1C 6.4 % 4.0-6. 0 high Diabe kae Scree kellen Crite maegan: <5.7% Consi stent with absen ce of diabe kae 5.7-6 .4% Consi stent with incre ased risk for diabe kae (pred iabet es) >OR=6 .5% Consi stent with diabe kae REFER ENCE: Diabe kae Care 2016, 39(Miller ppl.1 ):s13 -s22 Not Available [facility] (Lab) [address] [place], [address], 11/10/2024 14:45:47 03/16/20 25 03/17/2025 HEMOG LOBIN A1C hemoglobin A1C 6.0 %_of_ total _HGB <5.7 high For someo ne witho ut known diabe kae, a hemog lobin A1c value betwe en 5.7% and 6.4% is consi stent with predi abete s and shoul d be confi rmed with a follo w-up test. For someo ne with known diabe kae, a value <7% indic ates that their diabe kae is well contr olled . A1c targe ts shoul d be indiv idual ized based on durat ion of diabe kae, age, comor bid condi tions , and other consi derat ions. This assay resul t is consi stent with an incre ased risk of diabe kae. Curre ntly, no conse nsus exist s regar ding use of hemog lobin A1c for diagn osis of diabe kae for child keyona. Not Available [facility] [address] [address] [facility], [place], [address], 03/17/2025 02:42:15 04/27/20 24 04/01/2024 elect monica sunggr am No observ ation record ed. [email or web address] Not Available 2023 17:49:47 05/14/20 24 05/14/2024 CT, abdom en + pelvi s, w/ contr ast No observ ation record ed. [email or web address] [place] [address] [address], [place], [address], 05/14/2024 15:29:20 05/14/20 24 05/14/2024 CT, abdom en + pelvi s, w/ contr ast No observ ation record ed. [email or web address] [place] [address] Imaging [address], [place], [address], 05/14/2024 15:29:56 07/27/20 24 07/27/2024 scree kellen breas t altagracia, bilat [facility] [address] [id number] Patien t Name: LAURA KIMBROUGH ALONA Torrez Access ion #: [id number] Sex: F : 1949 9 Locati on: RAD Attend ing Physic thais: KARLI WADE CE Orderi ng Physic thais: KARLI WADE CE Exam Date: 2023 8:24 AM Exam Name: MG SCRN BREAST ALTAGRACIA BILAT Admitt ing Diagno sis(es ): MAMMOG SHREE REPORT - FINAL EXAM: MG SCRN BREAST ALTAGRACIA BILAT HISTOR Y: screen ing 74-yea r-old female with no curren t breast compla ints. COMPAR ARI: 2022, 09/16/ 2022 TECHNI QUE: Bilate ral CC and MLO views of the breast s were perfor med. Digita l Mammog shree images were obtain ed. CAD (compu ter assist ed detect ion) was utiliz ed. 3D Digita l breast tomosy nthesi s was perfor med and used in the interp retati on of images . FINDIN GS: There are scatte red areas of fibrog landul ar densit y. No new masses , develo ping asymme tries, suspic ious calcif icatio ns, or Page 1 of 2 [facility] Lyn ray Name: LAURA KIMBROUGH PE Access ion #: [id number] Sex: F : 1949 9 Exam Date: 2023 8:24 AM Exam Name: SCRN BREAST ALTAGRACIA BILAT Admitt ing Diagno sis(es ): robles ectura l distor tion are seen. IMPRES CARLOS A: BIRADS 1: Assess ment comple te. Negati ve. Recomm end annual screen ing mammog shree. Accord ing to the [employer], yearly mammog drea are recomm ended starti ng at age 40 and contin uing as long as the woman is in good health . Clinic al Breast Exam should be part of the period ic health exam-a bout every 3 years for women in their 20s and 30s and every year for women 40 and over. Breast self-e xam is an option for women in their 20s. Any breast change noted on the breast self-e xam she would be report ed prompt ly to the [facility]. A negati ve mammog shree report should not discou rage follow -up or biopsy of a clinic ally signif icant findin g and/or abnorm ality. Dense breast tissue may obscur e small neopla sms. This lyn ray has been entere d into a mammog shree remind er system with a target date for her next mammog glen. Create d and electr onical ly signed by: Hernesto womack MD Signed Date: 2023 8:39 AM (CT) Dictat ed by: Hernesto womack MD DD: 2023 8:39 AM (CT) DT: 2023 8:39 AM (CT) Page [address] (Imaging) [address] [place], [address], 07/27/2024 09:42:51 04/15/20 25 XR, foot, 3 or more view No observ ation record ed. [email or web address] [facility] [place] [facility] [place] [address], [place], [address], 04/15/2025 14:01:34 04/15/20 25 XR, foot, 3 or more view No observ ation record ed. [email or web address] [facility] [place] [facility] [place] [address], [place], [address], 04/15/2025 14:02:22 Result Notes None recorded. Problems Name Problem SNOMED Code Status Onset Date Resolution Date Notes Provider Name and Address Organization Details Recorded Time Hyperchole sterolemia 51313970 Active Not Available [facility] 3 12:52:36 Gastroesop hageal reflux disease 486138342 Active Not Available [facility] 3 12:52:36 Enthesopat hy of hip region 63096544 Active Not Available [facility] 3 12:52:36 Disorder of vitamin B12 893466972 Active Not Available [facility] 3 12:52:36 Essential hypertensi on 56581119 Active Not Available [facility] 3 12:52:37 Peripheral venous insufficie ncy 98085371 Active 2016 Not Available [facility] 3 12:52:36 Pain of left shoulder joint 2335855208805 9109 Active 2021 Not Available [facility] 3 12:52:36 Partial thickness rotator cuff tear 470275411 Active 2021 Not Available [facility] 3 12:52:36 Seasonal allergy 879596929 Active 2021 Not Available [facility] 3 12:52:36 Cough 16572996 Active 2021 Not Available [facility] 3 12:52:37 Supraventr icular tachycardi a 8518333 Active 2021 Not Available [facility] 3 12:52:37 COVID-19 883479716 Active 2021 Not Available [facility] 3 12:52:37 Vitamin D deficiency 65748838 Active 2021 Not Available [facility] 3 12:52:36 Atrial fibrillati on 24486758 Active 2021 Not Available [facility] 3 12:52:36 Obstructiv e sleep apnea syndrome 81767989 Active 2021 Not Available [facility] 3 12:52:37 Blood in urine 54171138 Active 2021 Not Available [facility] 3 12:52:36 Acute urinary tract infection 832821430 Active 2021 Not Available [facility] 3 12:52:36 Hearing disorder 898041252 Active 2021 Not Available [facility] 3 12:52:35 Blood glucose outside reference range 017240298 Active 2022 Deysi [place] - [facility] 3 14:21:50 Pain of right hip joint 2142920914425 02 Active 2022 PORFIRIO Adam[place] [facility] 3 09:05:10 Hyperglyce chano 10522292 Active 2022 Jostin Wade MD [address], [address], [place], [address] , [place] [facility] 3 17:19:39 Low back pain 787427322 Active 2022 [place], [place] [facility] 3 10:36:39 Syncope 949837811 Active 2022 Jostin Wade MD [address], [address], [place], [address] , [facility] 3 10:34:53 Near syncope 096476764 Active 2022 Jostin Wade MD [address], [address], [place], [address] , [facility] 3 10:35:02 Cardiac arrhythmia 495641493 Active 2022 Keila Barnhart null, [place] - [facility] 3 10:29:40 Arthritis 2587431 Active 2022 Keila Barnhart null, [place] [facility] 3 10:29:47 Ganglion cyst of right foot 3345002158752 108 Active 2022 Ranjeet Oscar DPM [address], [address], [place], [address] , [facility] 3 10:53:57 Foot callus 563478564 Active 2022 Ranjeet Oscar DPM [address], [address], [place], [address] , [facility] 5 10:48:03 Congenital pes planus 28367548 Active 2022 Ranjeet Oscar DPM [address], [address], [place], [address] , [facility] 3 10:55:21 Greater trochanter ic pain syndrome of left lower limb 1402184635345 9100 Active 2023 Jostin Wade MD [address], [address], [place], [address] , [facility] 4 20:55:42 Pain of left hip joint 6027596818157 00 Active 2023 PORFIRIO Adam null, [place] - [facility] 4 15:22:52 Metatarsal danyelle 71318718 Active 2023 Ranjeet Oscar DPM [address], [address], [place], [address] , [facility] 4 10:10:21 Seizure disorder 230349260 Active 2023 Deysi Burdickellivladislav [place], [place] - [facility] 5 12:27:47 Abdominal pain 51393021 Active 2023 Jostin Wade MD [address], [address], [place], [address] , [facility] 4 11:03:11 Pain of multiple joints 08656470 Active 2023 Jostin Wade MD [address], [address], [place], [address] , [facility] 4 09:16:36 Secondary immune deficiency disorder 49614527 Active 2023 Jostin Wade MD [address], [address], [place], [address] , [facility] 4 09:22:18 Recurrent miscarriag e 784903293 Active 2023 Deysi Araiza null, [place] [facility] 4 13:09:18 Melena 2767163 Active 2024 Edith Burns CMA null, [facility] 5 11:34:00 Osteoarthr itis 788290647 Active 2024 Jostin Wade MD [address], [address], [place], [address] , [facility] 5 12:00:51 Focal onset impaired awareness epileptic seizure 108484626 Active 2024 Jostin Wade MD [address], [address], [place], [address] , [facility] 5 11:25:01 Senile osteoporos is 63383844 Active 2024 Lurdes Uriah null, [facility] 5 11:34:22 Pain in both feet 8669345026976 9102 Active 2024 Ranjeet Oscar DPM [address], [address], [place], [address] , [employer] 5 10:47:57 Talipes planus 08967162 Active 2024 Ranjeet Oscar DPM [address], [address], [place], [address] , [facility] 5 10:48:08 Notes:Medical History: COVID infection 02/2022 Rhinitis Obesity with very severe OSAHS, AHI = 69, 03/22/22, on CPAP c/o IVRC Mixed hyperlipidemia Hypertension Mild RVE SVT Atrial fibrillation on Xarelto ANNELIESE Transaminitis B12 deficiency PLMD Left rotator cuff tear Hip enthesopathy Procedure History: T&A Appendectomy 1984 Bunionectomy 1999 Bladder suspension 2002 LARRY 2004 Problem Notes None recorded. Procedures Surgical History Date Name Laterality Status Provider Name and Address Organization Details Recorded Time 04/15/20 25 Callus Debridement, One completed Ranjeet Oscar DPM [address], [address], [place], [address], [employer] 04/15/2025 10:45:07 01/07/20 24 Medicare Wellness CPT Code, subsequent completed Wendy Villaseñor RN [place] [employer] 01/07/2024 10:42:41 12/19/19 24 Callus Debridement 2-4 completed Ranjeet Oscar DPM [address], [address], [place], [address], [employer] 12/19/2023 10:10:09 07/22/20 23 Callus Debridement 2-4 completed Ranjeet Oscar DPM [address], [address], [place], [address], [employer] 07/22/2023 11:20:49 12/29/19 23 Medicare Wellness CPT Code, subsequent completed Wendy Villaseñor RN [place] [employer] 12/28/2022 10:44:13 Appendectomy completed Not Available [facility] 12/05/2022 12:49:59 Hysterectomy completed Not Available [facility] 12/05/2022 12:49:59 excision of bunion completed Not Available [facility] 12/05/2022 12:49:59 Imaging Results None recorded. Procedure Notes None recorded. Medical Equipment None Reported. Allergies No known drug allergies Medications Name Sig Start Date Stop Date Status Note LastModified by Organization Details LastModified Time losartan 50 mg tablet take one tablet daily 09/19 completed Not Available Not Available Not Available amoxicillin 500 mg capsule Take 1 capsule 3 times a day by oral route for 10 days. 08/11 completed Not Available Not Available Not Available metformin 500 mg tablet TAKE 1 TABLET BY MOUTH TWICE DAILY 06/28 completed Not Available Not Available Not Available Augmentin 875 mg-125 mg tablet Take 1 tablet every 12 hours by oral route. 07/23 completed Not Available Not Available Not Available Carafate 1 gram tablet Take 1 tablet 4 times a day by oral route. 04/26 completed Not Available Not Available Not Available atorvastati n 10 mg tablet Take 1 tablet by mouth once daily 2024 active Not Available Not Available Not Avai lable benzonatate 200 mg capsule Take 1 capsule 3 times a day by oral route. active Not Available Not Available No t Available Lotrisone 1 %-0.05 % topical cream APPLY TO THE AFFECTED AND SURROUNDI NG AREAS OF SKIN BY TOPICAL ROUTE 2 TIMES PER DAY IN THE MORNING AND EVENING FOR 2 WEEKS-und er breasts 01/25 completed Not Available Not Available Not Available hydrocodone 5 mg-acetamin ophen 325 mg tablet TAKE 1 TO 2 TABLETS BY MOUTH EVERY 6 HOURS NEEDED 12/28 completed Not Available Not Available Not Available meloxicam 15 mg tablet TAKE 1 TABLET BY MOUTH ONCE DAILY 2024 active Not Available Not Available Not Avai lable ondansetron HCl 4 mg tablet TAKE 1 TABLET BY MOUTH EVERY 6 HOURS NEEDED FOR NAUSEA active Not Available Not Available No t Available Zithromax Z-Caio 250 mg tablet TAKE 2 TABLETS (500 MG) BY ORAL ROUTE ONCE DAILY FOR 1 DAY THEN 1 TABLET (250 MG) BY ORAL ROUTE ONCE DAILY FOR 4 DAYS 11/10 completed Not Available Not Available Not Available sulfamethox azole 800 mg-trimetho prim 160 mg tablet Take 1 tablet every 12 hours by oral route. 02/15 completed Not Available Not Available Not Available aspirin 81 mg tablet,alonzo yed release Take 1 tablet every day by oral route. active Not Available Not Available No t Available Tessalon Perles 100 mg capsule Take 1 capsule 3 times a day by oral route. 07/23 completed Not Available Not Available Not Available triamcinolo ne acetonide 0.1 % dental paste Apply to lesions TID with thin film active Not Available Not Available No t Available cyanocobala min (vit B-12) 500 mcg tablet Take 1 tablet every day by oral route. 01/14 completed Not Available Not Available Not Available dexamethaso ne 2 mg tablet TAKE 1 TABLET BY MOUTH 3 TIMES A DAY FOR 3 DAYS, THEN 1 TAB TWICE DAILY FOR 3 DAYS, THEN 1 TABLET ONCE DAILY FOR 3 DAYS. active Not Available Not Available No t Available cephalexin 500 mg capsule TAKE 1 CAPSULE BY MOUTH EVERY 8 HOURS 12/28 completed Not Available Not Available Not Available cyanocobala min (vit B-12) 1,000 mcg/mL injection solution Inject 1 mL every month by intramusc ular route. active Not Available Not Available No t Available tacrolimus 0.1 % topical ointment 11/10 completed Not Available Not Available Not Available Cipro 500 mg tablet Take 1 tablet twice a day by oral route for 10 days. active Not Available Not Available No t Available losartan 25 mg tablet TAKE 1 TABLET BY MOUTH ONCE DAILY 06/28 completed Not Available Not Available Not Available hydrochloro thiazide 12.5 mg capsule Take 1 capsule by mouth once daily active Not Available Not Available No t Available omeprazole 20 mg capsule,del ayed release Take 1 capsule every day by oral route. active Not Available Not Available No t Available diltiazem CD 120 mg capsule,ext ended release 24 hr TAKE 1 CAPSULE BY MOUTH ONCE DAILY 11/25 completed Not Available Not Available Not Available levetiracet am 750 mg tablet TAKE 1 TABLET BY MOUTH TWICE DAILY 11/10 completed Not Available Not Available Not Available Baby Aspirin 81 mg chewable tablet Chew 1 tablet every day by oral route. 04/26 completed Not Available Not Available Not Available lorazepam 1 mg tablet TAKE ONE TABLET BY MOUTH ONCE DAILY 08/01 completed Not Available Not Available Not Available Ativan 0.5 mg tablet Take 1 tablet every day by oral route as needed. active Not Available Not Available No t Available methylpredn isolone 4 mg tablets in a dose pack Take the medrol dose pack PO as directed 11/10 completed Not Available Not Available Not Available Naprosyn 500 mg tablet Take 1 tablet twice a day by oral route. 10/27 completed Not Available Not Available Not Available ondansetron 4 mg disintegrat ing tablet DISSOLVE 1 TABLET IN MOUTH EVERY 8 HOURS NEEDED FOR NAUSEA AND VOMITING 02/15 completed Not Available Not Available Not Available cefdinir 300 mg capsule Take 1 capsule every 12 hours by oral route. 08/11 completed Not Available Not Available Not Available diltiazem 60 mg tablet TAKE 1 TABLET BY MOUTH THREE TIMES DAILY 04/26 completed Not Available Not Available Not Available fluticasone propionate 50 mcg/actuati on nasal spray,suspe nsion USE 1 TO 2 SPRAY(S) IN EACH NOSTRIL TWICE DAILY 11/25 completed Not Available Not Available Not Available metformin ER 500 mg tablet,exte nded release 24 hr TAKE 1 TABLET BY MOUTH TWICE DAILY 06/28 completed Not Available Not Available Not Available metoclopram herman 10 mg tablet TAKE 1 TABLET BY MOUTH EVERY 6 HOURS NEEDED FOR NAUSEA AND VOMITING 02/15 completed Not Available Not Available Not Available diltiazem ER 240 mg tablet,exte nded release 24 hr TAKE 1 TABLET BY MOUTH ONCE DAILY 06/28 completed Not Available Not Available Not Available clonazepam 0.5 mg disintegrat ing tablet DISSOLVE 1 TABLET IN MOUTH TWICE DAILY NEEDED FOR SEIZURES 2024 active Not Available Not Available Not Avai lable melatonin 04/26 completed Not Available Not Available Not Available calcium carbonate daily 03/16 completed Not Available Not Available Not Available levetiracet am 1,000 mg tablet take one tablet am 1000 mg take one half tablet pm 1500 mg active Not Available Not Available No t Available hydrochloro thiazide 12.5 mg tablet 07/31 completed Not Available Not Available Not Available Prevacid 24Hr 15 mg capsule,del ayed release Take 1 capsule every day by oral route. 04/26 completed Not Available Not Available Not Available Dexilant 30 mg capsule, delayed release one capsule daily 08/01 completed Not Available Not Available Not Available Suprep Bowel Prep Kit 17.5 gram-3.13 gram-1.6 gram oral solution USE DIRECTED 01/25 completed Not Available Not Available Not Available Xarelto 20 mg tablet TAKE 1 TABLET BY MOUTH ONCE DAILY AT NIGHT WITH SUPPER 11/25 completed Not Available Not Available Not Available Paxlovid 300 mg (150 mg x 2)-100 mg tablets in a dose pack TAKE 3 TABLETS TOGETHER (TWO 150 MG NIRMATREL VIR TABLETS AND ONE 100 MG RITONAVIR TABLET) BY MOUTH TWICE DAILY FOR 5 DAYS. 04/26 completed Not Available Not Available Not Available Paxlovid 150 mg-100 mg tablets in a dose pack (Moderate Renal Dose) Take by oral route. Take two 150 mg and one 100 mg tablet twice daily for five days (Total of three tablets twice daily) 04/26 completed Not Available Not Available Not Available Ozempic 0.25 mg or 0.5 mg (2 mg/3 mL) subcutaneou s pen injector INJECT 0.25MG SUBCUTANE OUSLY ONCE WEEKLY FOR THE FIRST 4 WEEKS, THEN CONTACT OFFICE 2024 active Not Available Not Available Not Avai lable Vitals Date Recorded Body height Body mass index (BMI) Body weight Heart rate Body temperature Oxygen saturation Oxygen saturation in Arterial blood by Pulse oximetry Systolic And Diastolic Provider Name and Address Organization Details Last Updated DateTime 5 170.18 cm 30.7 kg/m2 56754.1 g 86 /min 97 [degF] 99 % 99 % 140/82 mm[Hg] Deysi [employer] [facility] [employer] 5 11:41:53 Date Recorded Body height Body mass index (BMI) Body weight Heart rate Body temperature Oxygen saturation Oxygen saturation in Arterial blood by Pulse oximetry Systolic And Diastolic Provider Name and Address Organization Details Last Updated DateTime 5 170.18 cm 30.7 kg/m2 02994.1 g 91 /min 97 [degF] 95 % 95 % 124/78 mm[Hg] [facility] [employer] [facility] 5 11:05:41 Date Recorded Body height Heart rate Body temperature Oxygen saturation Oxygen saturation in Arterial blood by Pulse oximetry Systolic And Diastolic Provider Name and Address Organization Details Last Updated DateTime 4 170.18 cm 75 /min 97.6 [degF] 94 % 94 % 138/88 mm[Hg] PORFIRIO Bray HI [facility] [employer] [facility] 4 11:14:02 Date Recorded Body height Body mass index (BMI) Body weight Heart rate Respiratory rate Oxygen saturation Oxygen saturation in Arterial blood by Pulse oximetry Systolic And Diastolic Provider Name and Address Organization Details Last Updated DateTime 5 170.18 cm 30.7 kg/m2 38188.1 g 84 /min 14 /min 97 % 97 % 130/97 mm[Hg] Emma Callahan [facility] [employer] [facility] 5 09:40:55 Date Recorded Body height Body mass index (BMI) Body weight Heart rate Body temperature Oxygen saturation Oxygen saturation in Arterial blood by Pulse oximetry Systolic And Diastolic Provider Name and Address Organization Details Last Updated DateTime 4 170.18 cm 30.7 kg/m2 37034.1 g 83 /min 97.8 [degF] 96 % 96 % 130/86 mm[Hg] Sarah Hernández Vladislav HI [employer] [facility] [employer] [facility] 4 10:41:05 Social History Question Answer Notes LastModified by Organizat ion Details LastModified Time Tobacco Smoking Status Never Smoker Not Available [facility] 12/05/2022 12:49:55 Do You Have An Advance Directive? Yes [email or web address] Information not available 12/28/2022 Are You Blind Or Do You Have Difficulty Seeing? No [email or web address] Information not available 12/28/2022 Are You Deaf Or Do You Have Serious Difficulty Hearing? No [email or web address] Information not available 12/28/2022 What Type Of Diet Are You Following? REGULAR [email or web address] Information not available 12/28/2022 Have There Been Any Changes To Your Family Or Social Situation? No [email or web address] Information not available 12/28/2022 What Is The Fluoride Status Of Your Home? Unknown [email or web address] Information not available 12/28/2022 Do You Use Insect Repellent Routinely? Yes [email or web address] Information not available 12/28/2022 [place] [email or web address] Information not available 12/28/2022 Are You Able To Care For Yourself? Yes [email or web address] Information not available 12/28/2022 Are You Blind Or Do Yo Have Difficulty Seeing? No [email or web address] Information not available 12/28/2022 Are You Deaf Or Do You Have Serious Difficulty Hearing? No [email or web address] Information not available 12/28/2022 Live Alone Of With Others? With Others Information not available 12/28/2022 Do You Have A Medical Power Of [employer]member? Yes [email or web address] Information not available 12/28/2022 What Was The Date Of Your Most Recent Tobacco Screening? 01/07/2024 [email or web address] Information not available 01/07/2024 Do You Have Any Pets? No [email or web address] Information not available 12/28/2022 What Is Your Relationship Status? [email or web address] Information not available 12/28/2022 Do You Use Your Seat Belt Or Car Seat Routinely? Yes [email or web address] Information not available 12/28/2022 Do You Have Smoke And Carbon Monoxide Detectors In Your Home? Yes [email or web address] Information not available 12/28/2022 Are You Passively Exposed To Smoke? No [email or web address] Information not available 12/28/2022 Are There Any Smokers In Your House? No [email or web address] Information not available 12/28/2022 Do You Use Sunscreen Routinely? Yes [email or web address] Information not available 12/28/2022 Have You Recently Traveled Abroad? No [email or web address] Information not available 12/28/2022 Do You Have Difficulty Walking Or Climbing Stairs? No Information not available 12/28/2022 Sex: Unknown Functional Status Question Answer Note LastModified by Organizat ion Details LastModified Time What is your level of alcohol consumption? None Information not available 07/22/2023 Do you have transportation difficulties? No [email or web address] Information not available 12/28/2022 Are you able to walk? YESWOREST [email or web address] Information not available 12/28/2022 Do you have difficulty doing errands alone? No [email or web address] Information not available 12/28/2022 Are you able to care for yourself? Yes [email or web address] Information not available 12/28/2022 Do you have difficulty dressing or bathing? No [email or web address] Information not available 12/28/2022 What is your exercise level? Moderate [email or web address] Information not available 12/28/2022 Mental Status Question Answer Note LastModified by Organization D etails LastModified Time Do you have difficulty concentrating, remembering or making decisions? No [email or web address] Information no t available 12/28/2022 Family History Relationship Description Onset Age of this Age Resolved Age Notes LastModified by Organization Details LastModified Time Father Hypertensive disorder Not available 2022 10:30:06 Father Arthritis Not available 07/22/2023 10:30:25 Mother Ruptured cerebral aneurysm [id number] Not available 12/05/2022 12:50:01 Mother Hypertensive disorder Not available 2022 10:30:08 Mother Arthritis Not available 07/22/2023 10:30:25 Notes:Mother 86 wit h hx of ruptured cerebral aneurysm, HTN, ASHD, Atrial Fibrillation Father in 70's from ASHD and CHF Sisters 1 HTN and High cholesterol Brothers 1 Living Aortic Valve Replacement. Cholesterol, RA, Renal cysts Medical History Condition Response NERVE DISEASE N BLINDNESS N RHEUMATIC FEVER N KIDNEY STONES N BLADDER PROBLEMS N MRSA N OTHER # 1 N POLIO N LUNG DISEASE/DISORDER N HISTORY OF DRUG ABUSE N RADIATION / CHEMOTHERAPY N COPD N Other # 2 N BLOOD DISEASES N EAR OR HEARING PROBLEMS N MUMPS N SHINGLES N BOWEL PROBLEMS N DEPRESSION (INCLUDING POST ) N STROKE/TIA N ULCERS N BENIGN PROSTATIC HYPERPLASIA N MEASLES N HYPOTENSION N MYOCARDIAL INFARCTION N OBESITY N GERD/NAUSEA N ANEURYSM N URINARY/BLADDER/KIDNEY PROBLEMS N CORONARY ARTERY DISEASE (CAD) N ADDICTION CONCERNS N Impotence N ENDOMETRIOSIS N USE OF BLOOD THINNERS Y SKIN PROBLEMS N GASTROINTESTINAL DISORDER N PERIPHERAL VASCULAR DISEASE N MUSCLE,JOINT OR BONE PROBLEMS N GASTROINTESTINAL BLEEDING N BLOOD CLOTS Y ASTHMA N CATARACTS N ERECTILE DYSFUNCTION N VARICOSITIES N GI PROBLEMS N Low Testosterone N INFERTILITY N AIDS/HIV N CHEMOTHERAPY / RADIATION N LIVER DISEASE N MALE HYPOGONADISM N HYPERTENSION Y Deficiency N TOURETTE'S N ANXIETY DISORDER N BLOOD TRANSFUSION N ANEMIA/BLOOD DISORDER N CHRONIC EAR INFECTIONS N BRONCHITIS N TUBERCULOSIS N GLAUCOMA N FOOT PROBLEM N DIVERTICULITIS N SLEEP APNEA N CHICKENPOX N INFECTIOUS DISEASE N PROSTATE N HEART ARRHYTHMIA N INSOMNIA N HIGH CHOLESTEROL / HYPERLIPIDEMIA Y EYE PROBLEMS N HYPERTHYROIDISM N EDEMA N CHRONIC PAIN SYNDROME N HYPOTHYROIDISM N CONSTIPATION N CAROTID BLOCKAGE N BACK / NECK PROBLEMS N HAVE YOU BEEN HOSPITALIZED OR SEEN IN [facility] IN THE PAST YEAR ? N ATHEROSCLEROSIS N BREAST PROBLEMS N DIALYSIS N ECZEMA N OSTEOPOROSIS N ARTHRITIS Y NO SIGNIFICANT PAST MEDICAL HISTORY N APPENDICITIS N DIABETES, TYPE N BAD TEETH N ENT N HEARTBURN / REFLUX N AUTISM SPECTRUM DISORDER (ASD) N HEPATITIS / LIVER DISEASE N GOUT N SLEEP DISORDER N ALZHEIMER'S DISEASE N Brain Problems N DEMENTIA N HERPES N SEIZURES/EPILEPSY N HEADACHES/MIGRAINES N VASCULAR DISEASE N PACEMAKER N Blood Disorder N DIZZINESS N HEART DISEASE/HEART PROBLEMS Y KIDNEY DISEASE N MULTIPLE SCLEROSIS N CANCER: SPECIFY N CARDIAC ARRHYTHMIA Y ATRIAL FIBRILLATION N Gall Stones N PULMONARY EMBOLISM N AUTOIMMUNE DISEASE N Gynecological HistoryNo gynecological history recorded. Obstetrics History GPAL:G 0 P 0 0 0 0 Immunizations Vaccine Type Date Status Note Provider Nam e and Address Organization Details Recorded Time influenza, unspecified formulation 3 completed Deysi [facility] [facility] [employer] 09/06/2023 11:15:43 Influenza, adjuvanted, trivalent, PF 4 completed PORFIRIO BrayWealth[employer] [facility] [employer] [facility] 08/06/2024 17:17:06 Influenza, split virus, quadrivalent, preservative 2 completed Not Available [facility] 12/05/2022 12:56:42 COVID-19, mRNA, LNP-S, PF, 30 mcg/0.3 mL dose 1 completed Not Available [facility] 12/05/2022 12:56:43 Influenza, split virus, quadrivalent, preservative 1 completed Not Available [facility] 12/05/2022 12:56:43 SARS-COV-2 (COVID-19) vaccine, UNSPECIFIED 1 completed Not Available [facility] 12/05/2022 12:56:43 influenza, unspecified formulation 8 completed Not Available [facility] 12/05/2022 12:56:43 Influenza, high-dose, trivalent, PF 6 completed Not Available [facility] 12/05/2022 12:56:43 pneumococcal polysaccharide PPV23 5 completed Not Available [facility] 12/05/2022 12:56:43 zoster live 3 completed Not Available [facility] 12/05/2022 12:56:43 Past Encounters Encounter ID Performer Location Encounter Start Date Encounter Closed Date Diagnosis/Indication Diagnosis SNOMED-CT Code Diagnosis ICD10 Code Diagnosis Note [id number] Enzo Cabrera MD [facility] [place] [address] [place] [address] 01/25/2021 00:00:00 01/25/2021 10:47:38 [id number] Enzo Cabrera MD [facility] [place] [address] [place] [address] 02/22/2021 00:00:00 02/22/2021 08:50:18 [id number] Jostin Wade MD [facility] Internal Med [facility] [address] [place] [address] 04/11/2021 00:00:00 04/11/2021 10:07:58 [id number] [facility] [place] [address] [place] [address] 06/08/2021 00:00:00 06/11/2021 13:24:26 [id number] Enzo Cabrera MD [facility] [place] [address] [place] [address] 09/06/2021 00:00:00 09/06/2021 10:13:42 [id number] Enzo Cabrera MD [facility] [place] [address] [place] [address] 10/27/2021 00:00:00 10/27/2021 10:36:08 [id number] Enzo Cabrera MD [facility] [place] [address] [place] [address] 11/13/2021 00:00:00 11/13/2021 14:33:23 [id number] Jostin Wade MD [facility] Internal [place] [address] [place] [address] [place] [address] 11/28/2021 00:00:00 11/28/2021 11:42:25 [id number] Jostin Wade MD [facility] Internal Med [place] [address] [place] [address] [place] [address] 02/23/2022 00:00:00 02/23/2022 10:55:33 [id number] Jostin Wade MD [facility] Internal Med [place] [address] [place] [address] [place] [address] 06/05/2022 00:00:00 06/05/2022 12:59:40 [id number] Jostin Wade MD [facility] Internal Med [place] [address] [place] [address] [place] [address] 12/28/2022 10:40:21 12/28/2022 11:00:35 Adult health examination 096989342 Z00.00 Screening for disorder 891690105 Z13.9 Essential hypertension 22187350 I10 Atrial fibrillation 4943 6004 I48.91 Hypercholesterolemia 136 02999 E78.00 Obstructiv e sleep apnea syndrome 25966407 G47.33 Vitamin D deficiency 347 81816 E55.9 [id number] Enzo Cabrera MD [facility] [place] [address] [place] [address] 02/15/2023 08:53:07 02/15/2023 09:56:40 Pain of right hip joint 7505350855 24575 M25.891 [id number] Jostin Wade MD [facility] Internal Med [place] [address] [place] [address] [place] [address] 06/28/2023 10:29:37 06/28/2023 10:50:55 Atrial fibrillation 14316182 I48.91 Essential hypertension 42692706 I10 Hypercholesterolemia 136 69814 E78.00 Obstructiv e sleep apnea syndrome 60572952 G47.33 Hyperglycemia 20287595 R 73.9 [id number] Jostin Wade MD [facility] Internal Med [facility] [address], [facility] [address] [place] [address] 07/10/2023 10:26:49 07/10/2023 10:52:01 Atrial fibrillation 42788817 I48.91 Hypercholesterolemia 136 30891 E78.00 Essential hypertension 12540477 I10 Near syncope 295652730 R 55 [id number] Ranjeet Oscar DPM [facility] Pod[facility] [place] [address] [place] [address] 07/22/2023 10:24:35 07/22/2023 11:22:35 Ganglion cyst of right foot 5746698022 190615 M67.471 educated on treatment optionsrec ommend aspiration patient elects to continue with conservati ve therapyoff loading to prevent injury and wounds which could lead to infection and possible amputation of toefollow- up as needed Foot callus 126151104 L8 4 bilateral feetdebrid ed without incident right footrecomm end orthoticsc ontinue supportive shoe gearfollow -up as needed Congenital pes planus 23 286141 Q66.51 Q66.52 Denied x-raysreco mmend custom orthotics, Rx todaysuppo rtive shoe gear dailyfollo w-up as needed [id number] Jostin Wade MD [facility] Internal Med [facility] [address] [place] [address] 09/06/2023 11:01:36 09/06/2023 12:01:44 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 G40.209 Atrial fibrillation 4943 6004 I48.91 Essential hypertension 27013092 I10 Hypercholesterolemia 136 23224 E78.00 Gastroesop hageal reflux disease 233304953 K21.9 [id number] Jostin Wade MD [facility] Internal Med [place] [address] [place] [address] 10/18/2023 10:31:34 10/18/2023 11:04:02 Essential hypertension 23781424 I10 Atrial fibrillation 4943 6004 I48.91 Hypercholesterolemia 136 55912 E78.00 Complex pa rtial seizure of temporal lobe 1861145382 9107 G40.539 [id number] Enzo Cabrera MD [facility] [place] [address] [place] [address] 11/25/2023 15:05:45 12/02/2023 10:02:37 Pain of left hip joint 6588424099 13395 M25.041 [id number] Ranjeet Oscar DPM [facility] Podiat[facility] [place] [address] [place] [address] 12/19/2023 09:25:47 12/19/2023 10:17:47 Foot callus 932659696 L84 bilateral feetrecomm end use of pumice stone dailyrecom mend use of urea lotion over-the-c ounter areas of callusdebr ided without incident both feetrecomm end orthotics for offloading to prevent wounds infectionc ontinue supportive shoe gearfollow -up as needed Metatarsalgia 14136698 M 77.41 M77.42 rice therapycon tinue of shoe gearrecomm end custom orthoticsR x for new custom orthoticsf ollow-up as needed [id number] Jostin Wade MD [facility] Internal Med [address] [place] [address] 01/07/2024 10:38:11 01/07/2024 11:00:57 Adult health examination 193680837 Z00.00 Screening for disorder 363953659 Z13.9 Atrial fibrillation 4943 6004 I48.91 Complex pa rtial seizure of temporal lobe 6203780386 9107 G40.209 Essential hypertension 64395643 I10 Obstructiv e sleep apnea syndrome 49130901 G47.33 Hypercholesterolemia 136 28270 E78.00 Vitamin D deficiency 347 32116 E55.9 [id number] Jostin Wade MD [facility] Internal Med [facility] [address] [facility], [facility] [address] [place] [address] 04/01/2024 11:06:47 04/01/2024 11:51:56 Atrial fibrillation 18738417 I48.91 Essential hypertension 83427264 I10 Hypercholesterolemia 136 29031 E78.00 Seizure disorder 2401308 02 G40.963 [id number] Jostin Wade MD [facility] Internal [facility] [address] [place] [address] [address] 05/07/2024 10:31:00 05/07/2024 11:17:49 Abdominal pain 14013973 R10.9 Essential hypertension 78934614 I10 Atrial fibrillation 4943 6004 I48.91 Hypercholesterolemia 136 99090 E78.00 Obstructiv e sleep apnea syndrome 58166198 G47.33 Peripheral venous insufficiency 03515786 I87.2 Seizure disorder 9033369 02 G40.537 [id number] Jostin Wade MD [facility] Internal Med [facility] [address] [address] 11/10/2024 11:25:30 11/10/2024 14:33:24 Essential hypertension 69586769 I10 Atrial fibrillation 4943 6004 I48.91 Gastroesop hageal reflux disease 675627653 K21.9 Hypercholesterolemia 136 21303 E78.00 Hyperglycemia 00561543 R 73.9 Osteoarthritis 692705111 M19.90 [id number] Jostin Wade MD [facility] Internal [place] [address] [address] 03/16/2025 10:31:31 03/16/2025 11:38:57 General examination of patient 579511497 Z00.00 Focal onse t impaired awareness epileptic seizure 797355442 G40.209 Essential hypertension 32387758 I10 Gastroesop hageal reflux disease 183302302 K21.9 Hypercholesterolemia 136 74951 E78.00 Hyperglycemia 45111307 R 73.9 [id number] Ranjeet Oscar DPM [facility] [place] [address] [address] [place] [address] 04/15/2025 09:35:00 04/16/2025 08:19:30 Pain in both feet [id number] M79.671 M79.672 x-rays reviewed Foot callus [id number] L8 4 left foot q4trvcsjwn d use of pumice stone dailyrecom mend use of urea lotion over-the-c ounter areas of callusdebr ided without incident both feetrecomm end orthotics for offloading to prevent wounds infectionc ontinue supportive shoe gearfollow -up as needed Natan moore [id number] M21.41 M21.42 as above Health Concerns Section Related Observation LastModified by Organization Detai ls LastModified Time None Recorded Concern Status LastModified by Organization Details LastModified Time None Recorded Advance Directives Directive Y: Payers Insurance Date Sequence Insurance Name Policy Number Policy See Covered Member ID See Member ID Guarantor Name 11/10/2024 1 [facility] (MEDICARE REPLACEMENT/ ADVANTAGE - PPO) [id number] Grecia J Bety [id number] Grecia J Bety 04/12/2025 1 [facility] (MEDICARE REPLACEMENT/ ADVANTAGE - PPO) [id number] Greciayolis Baezsseau [id number] Greciayolis Baezsseau Notes Date Note Type Note Provider Name and Address Organization Details Recorded Time 04/01/20 24 text/htm l Patient Name: Grecia JungMirzate Of Service: Saturday ( 04.01.2024 ): 1950 Age: 73 Vital Signs:Blood Pressure: Sitting Rt. Arm 138/88Pulse: Sitting 75 /min and RegularRespiratory Rate: 12Pulse Oximetry: 94 % at rest on no oxygen Chief Complaint: Addressed in HPI Problems or conditions discussed in the HPI were the only ones reviewed during the encounter.Only social and family history addressed in the HPI were reviewed during this encounter. Attendant(s): HusbandConstitutional and Systemic Symptoms:none Medication Reconciliation: from medication list. History of Present Illness #1. 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 Had been on Keppra 750 mg twice daily. Was recently on vacation. May have missed three or four dosages of the medication during that interval of time. Apparently this morning awakened with somewhat confused and disoriented. Was unable to name the day of the week or her grandchildren at the time. Not associated with any tonic-clonic movement. There has no associated other systemic symptoms with the exception of some nausea and indigestion and slight diaphoresis. In the office today is totally coherent. Memory has been restored. No cognitive of record of the episode this morning. Just knew that she had something happened this morning. May have been secondary to missing several doses of medication. In the interim will increase her Keppra to 3 times daily for two days. Will also try to set her up to be seen by her neurologist. was able to obtain a video of her episode and I recommended that he take this to the neurologist.: #2. Essential Hypertension: Stage: Stage I Interval Neurological Complaints no headaches, dizziness, weakness, visual changes, ataxia, aphasia and apraxia. No shortness of breath, orthopnea or cardiovascular symptoms. No other symptoms related to end organ damage. Pressure has been under excellent control. Currently normal. No other end organ symptoms or findings. Therapy reviewed regarding management of hypertension and includes salt restriction. #3. Type II Hypercholesterolaemia: Currently taking medication and tolerating well. No interval complaints of any muscle pain or arthralgia. No significant liver changes with medications. Last lipid panel: excellent control. Therapy reviewed regarding treatment of cholesterol management and include diet and Lipitor. #4. Atrial Fibrillation: Type: Paroxysmal with recurrent episodes lasting less than 7 days. Further classification: Non-valvular. Associated history of HTN. No attending hx of any shortness of breath, palpitations, syncopal or neurological symptoms. Current medications: no specific medication. Rate control: controlled ventricular response [id number] Criteria: Age < 65 and and considered low risk for embolic phenomenon. Anticoagulation: ASA per cardiology Active Medication ListCalcium Carbonate DailyLipitor 10 MG (TABLET - ORAL) One DailyAspirin 81 MG TABLET One DailyKeppra 750 MG TABLET, FILM COATED Twice A Day Vaccination and Ccbpspziqgaj0678-85 Tedhtsggl6889-95 Covid Actirb2488-50 Levszfsyz3742-85 Prevnar 13 Surgical Jncibbz8384-12 Cystoscopy Hfzezfoqxrkb3364-86 Bladder Caomipnmcn7343-33 Appendectomy Preventative Dwzfhtm4202/05/2024 ALBUMIN 4.1 G/DL07/10/2023 MAMMOGRAM / MICRO ALBUMIN 30.7 MG/L H006/28/2023 HAIC 6.1 % H006/22/2022 DEXA SCAN ( 2 YEARS ) / UPPER RCPUURDLD99/17/2020 COLONOSCOPY (5 YEARS) 508 COLOGUARD OPHTHALMOLOGY Social HistoryCategory DescriptionTobacco Hx Does not smokeAlcohol Hx Drinks sociallyBeveragesIllicit Drugs NoneOTC MedsOccupation Nursing instructorTravel HxSexual HxPregnancy Hx 2 Para 2 Aborta 0Family HistoryMother 86 with hx of ruptured cerebral aneurysm, HTN, ASHD, Atrial FibrillationFather : in 70's from ASHD and CHFSisters 1: HTN and High cholesterolBrothers 1: Living Aortic Valve Replacement. Cholesterol, RA, Renal cystsMenarche 11 Menopause 54 A0 Jostin Wade MD [address] [facility], [facility] [address], [address], [facility] [employer] 04/01/2024 11:56:34 05/07/20 24 text/htm l Patient Name: Grecia Mcdonough Of Service: May ( 05.07.2024 ): 1950 Age: 73 Vital Signs:Blood Pressure: Sitting Rt. Arm 130/86Pulse: Sitting 83 /min and RegularRespiratory Rate: 14Height 67 in or 1.7 mWeight 196 lb or 88.9 kgBMI 30.7Temperature: 97.8 F or 36.6 CPulse Oximetry: 96 % at rest on no oxygen Chief Complaint: Addressed in HPI Problems or conditions discussed in the HPI were the only ones reviewed during the encounter.Only social and family history addressed in the HPI were reviewed during this encounter. Attendant(s): HusbandConstitutional and Systemic Symptoms:none Medication Reconciliation: from medication list. History of Present Illness #1. Complaining of pain and discomfort intermittently both in the right upper quadrant and right flank area. Has had previous history of hydroureter as well as hemorrhage from the right kidney And left kidney in the past. This is thought to the past to be secondary to anticoagulant therapy. Now has been bothered by daily nausea not necessarily occurring postprandially occasionally followed by abdominal pain both in the right upper and right lower quadrant and some area in the right flank area. May have passed some small amount of blood as well. In light of his previous history of spontaneous hemorrhaging possibly related in part to the anticoagulation will need further evaluation.: #2. Essential Hypertension: Stage: Stage I Interval Neurological Complaints no headaches, dizziness, weakness, visual changes, ataxia, aphasia and apraxia. No shortness of breath, orthopnea or cardiovascular symptoms. No other symptoms related to end organ damage. Pressure has been under excellent control. Currently normal. No other end organ symptoms or findings. Therapy reviewed regarding management of hypertension and includes salt restriction. #3. Type II Hypercholesterolaemia: Currently taking medication and tolerating well. No interval complaints of any muscle pain or arthralgia. No significant liver changes with medications. Last lipid panel: fair control. Therapy reviewed regarding treatment of cholesterol management and include diet and Lipitor. #4. Atrial Fibrillation: Type: Paroxysmal with recurrent episodes lasting less than 7 days. Further classification: Non-valvular. Associated history of HTN. No attending hx of any shortness of breath, palpitations, syncopal or neurological symptoms. Current medications: no specific medication. Rate control: controlled ventricular response [id number] Criteria: hypertension, Age 65-74 and and considered low risk for embolic phenomenon. Anticoagulation: ASA per cardiology #5. Sleep Apnea: Type: CHEMA Current doing well. No significant daytime somnolence or problems performing daily chores. intermittently using the CPAP . Overall has shown considerable improvement.Larned Sleepiness ScaleSitting and ReadinWatching TV: 1Sitting Inactive in a Public Place: 1Passenger in a Car: 1Lying Down in Afternoon: 0Sitting and Talking to someone: 0Sitting quietly after lunch: 1In a car while stopped or drivinScore Interpretation: 0-7 No evidence of abnormally sleepy #6. Venous Insufficiency: Hx of venous insufficiency of the lower legs. No change in swelling, varicosities, erythema or ulcerations. No shortness of breath or other cardiopulmonary symptoms. #7. Seizure Disorder: Type: Complex Partial Frequency: 1-2 per month Current Medications: Keppra No complications related to medications. Active Medication ListCalcium Carbonate DailyLipitor 10 MG (TABLET - ORAL) One DailyAspirin 81 MG TABLET One DailyOmeprazole 20 MG CAPSULE, COATED PELLETS One DailyKeppra 750 MG TABLET, FILM COATED Twice A Day Vaccination and Abvvpunzbqpe7704-27 Ydwfvnwvh9365-45 Covid Jvfkxl7829-93 Qwfduyanj2307-90 Prevnar 13 Gc Surgical Tujmxkb0979-84 Cystoscopy Lskjayekvsps6137-21 Bladder Zdlldepidg9482-96 Appendectomy Preventative Ahpbsfr2202/05/2024 ALBUMIN 4.1 G/DL07/10/2023 MAMMOGRAM / MICRO ALBUMIN 30.7 MG/L H006/28/2023 HAIC 6.1 % H006/22/2022 DEXA SCAN ( 2 YEARS ) / UPPER IWBRELJXG45/17/2020 COLONOSCOPY (5 YEARS) COLOGUARD OPHTHALMOLOGY Social HistoryCategory DescriptionTobacco Hx Does not smokeAlcohol Hx Drinks sociallyBeveragesIllicit Drugs NoneOTC MedsOccupation Nursing instructorTravel HxSexual HxPregnancy Hx 2 Para 2 Aborta 0Family HistoryMother 86 with hx of ruptured cerebral aneurysm, HTN, ASHD, Atrial FibrillationFather : in 70's from ASHD and CHFSisters 1: HTN and High cholesterolBrothers 1: Living Aortic Valve Replacement. Cholesterol, RA, Renal cystsMenarche 11 Menopause 54 A0 Jostin Wade MD [address] [facility], [facility] [address], [place], [address], [facility] 05/07/2024 11:09:59 11/10/19 25 text/htm l [facility] Service: Saturday ( 11.10.2024 ): 1950 Age: 74 Vital Signs:Blood Pressure: Sitting Rt. Arm 140/82Pulse: Sitting 86 /min and RegularRespiratory Rate: 16Height 67 in or 1.7 mWeight 196 lb or 88.9 kgBMI 30.7Temperature: 97 F or 36.1 CPulse Oximetry: 99 % at rest on no oxygen Chief Complaint: Addressed in HPI Problems or conditions discussed in the HPI were the only ones reviewed during the encounter.Only social and family history addressed in the HPI were reviewed during this encounter. Attendant(s): HusbandConstitutional and Systemic Symptoms:none Medication Reconciliation: from medication list. [id number]: CT scan of the abdomen and pelvis with contrast demonstrates multiple hepatic cysts measuring up to 2 cm in diameter. The gallbladder, pancreas, adrenal glands are all normal. There cysts in the kidneys measuring up to 15 mm in the left. Mild atherosclerotic changes noted the abdominal aorta. No dilated loops of small bowel. There is a small umbilical hernia containing fat. History of Present Illness #1. Essential Hypertension: Stage: Stage I Interval Neurological Complaints no headaches, dizziness, weakness, visual changes, ataxia, aphasia and apraxia. No shortness of breath, orthopnea or cardiovascular symptoms. No other symptoms related to end organ damage. Pressure has been under excellent control. Currently normal. No other end organ symptoms or findings. Therapy reviewed regarding management of hypertension and includes salt restriction. #2. Atrial Fibrillation: Type: Paroxysmal with recurrent episodes lasting less than 7 days. Further classification: Non-valvular. Associated history of none. No attending hx of any shortness of breath, palpitations, syncopal or neurological symptoms. Current medications: no specific medication. Rate control: controlled ventricular response [id number] Criteria: hypertension, Age > 75 and and considered moderate risk for embolic phenomenon. Anticoagulation: ASA per cardiology #3. Type II Hypercholesterolaemia: Currently taking medication and tolerating well. No interval complaints of any muscle pain or arthralgia. No significant liver changes with medications. Last lipid panel: fair control. Therapy reviewed regarding treatment of cholesterol management and include diet and Lipitor. #4. Glucose Intolerance: Hx of glucose intolerance controlled with diet. No interval complaints of any polyuria, polyphagia or polydipsia. No nocturia. There has been no weight loss or other constitutional symptoms. Medications reviewed regarding diabetic management and include diet only. Last HAIC: DCCT HAIC: 6.1 Calculated MB mg% #5. Hx of esophageal reflux currently stable. Hx of Complications: none The severity, duration and intensity of symptoms have improved. Frequency: most meals Treatment consists medications taken on a regular basis. Current therapy includes Omeprazole. There has been no nausea, eructation, vomiting, hematemesis, dysphagia, velopharyngeal insufficiency and odynophagia. No change in he frequency or intensity of symptoms. Has had no melena. Has had no . Discussed use of H2 antagonists and the possibility of trying to reduce the frequency of the use of any PPI inhibitors and try H2 antagonists to see if symptoms can be controlled with lease intensive therapy since a number of complications are associated with chronic prolonged use of PPI inhibitors. #6. Hx of obesity. Currently Class 1 Obesity BMI 30-34.99. Has tried numerous dietary support and supplements with no benefit. Instructed on the health consequences of the obese status particularly cancer - diabetes and heart disease. Discussed other modalities of weight loss GLP-1 medications that are used to treat diabetes . Potential candidate for bariatric surgery: No. Wishes to be evaluated by Dietary: No and was offered to be evaluated and instructed by reel blade bender furnace tender on weight loss diet. Active Medication ListCalcium Carbonate DailyLipitor 10 MG (TABLET - ORAL) One DailyAspirin 81 MG TABLET One DailyOmeprazole 20 MG CAPSULE, COATED PELLETS One DailyKeppra 1000 MG TABLET, FILM COATED Twice A Day Vaccination and Immunization( ) 2024-07 INFLUENZA( ) 2024-07 TDAP(X) 2015-06 PNEUMOVAX PREVNAR 20 Needed( ) 2014-10 PREVNAR 13 GC(X) 2020-12 COVID Inte[employer] Surgical Mzpgsat5256-67 Cystoscopy Hdiitvrxeiwx5687-94 Bladder Bdrqqmczql1432-01 Appendectomy Preventative Testing( ) 07/27/2024 Mammogram 07/27/2026( ) 02/05/2024 Albumin 4.1 G/DL( ) 06/28/2023 Micro Albumin 30.7 MG/L H( ) 06/28/2023 HAIC 6.1 % H(X) 06/22/2022 DEXA Scan ( 2 Years ) 06/22/2024( ) 11/30/2020 Upper Endoscopy( ) 05/23/2020 Colonoscopy (5 Years) 05/23/2025( ) 05/17/2014 Ophthalmology Social HistoryCategory DescriptionTobacco Hx Does not smokeAlcohol Hx Drinks sociallyBeveragesIllicit Drugs NoneOTC MedsOccupation Nursing instructorTravel HxSexual HxPregnancy Hx 2 Para 2 Aborta 0Family HistoryMother 86 with hx of ruptured cerebral aneurysm, HTN, ASHD, Atrial FibrillationFather : in 70's from ASHD and CHFSisters 1: HTN and High cholesterolBrothers 1: Living Aortic Valve Replacement. Cholesterol, RA, Renal cystsMenarche 11 Menopause 54 A0 Jostin Wade MD [address], [address], [place], [address], [place] [facility] 11/10/2024 12:01:35 03/16/20 25 text/htm l Patient Name: Grecia Mcdonough Of Service: Saturday ( 03.16.2025 ): 1950 Age: 74 Vital Signs:Blood Pressure: Sitting Rt. Arm 124/78Pulse: Sitting 91 /min and RegularRespiratory Rate: 16DCCT HAIC: 6.4 Calculated MB mg% Chief Complaint: Addressed in HPI Problems or conditions discussed in the HPI were the only ones reviewed during the encounter.Only social and family history addressed in the HPI were reviewed during this encounter. A significant, separate E/M service was performed to evaluate the current and new problems. Attendants(s) + HusbandConstitutional and Systemic Symptoms:none Medication Reconciliation: from medication list. [id number]: CT scan of the abdomen and pelvis with contrast demonstrates multiple hepatic cysts measuring up to 2 cm in diameter. The gallbladder, pancreas, adrenal glands are all normal. There cysts in the kidneys measuring up to 15 mm in the left. Mild atherosclerotic changes noted the abdominal aorta. No dilated loops of small bowel. There is a small umbilical hernia containing fat. 11-25-2024: upper endoscopy showed mild gastritis in the antrum. A few small gastric polyps were noted. Parents appears benign. Multiple biopsies were taken. Small hiatus hernia was [id number]: colonoscopy showed a 2 mm polyps observed in the sigmoid colon. The terminal ileum in the rest of the colon were normal with no AVM. A few small size internal hemorrhoids were seen in the rectum the hemorrhoids were not actively bleeding. History of Present Illness Reviewed the findings of the preventative health visit. Addressed all areas with the patient, patient's family or caregivers. Preventative examinations and testing immunizations - vaccinations all reviewed and ordered where patient was amenable to the recommendations. Cognitive function see HPI but demonstrated no overall change in cognitive status . Depression addressed and where necessary medications were adjusted or instituted. End of life and living will briefly discussed with patient and where these can be filled out and legally executed. Other blood and imaging studies were ordered if considered necessary. Other recommendations may be found in the encounter note. #1. Seizure Disorder: Type: Complex Partial Frequency: Last one February 20, 2025 Current Medications: Clonazepam and Keppra No complications related to medications. #2. Essential Hypertension: Stage: Stage I Interval Neurological Complaints no headaches. No shortness of breath, orthopnea or cardiovascular symptoms. No other symptoms related to end organ damage. Pressure has been under fair control. Currently normal. No other end organ symptoms or findings. Therapy reviewed regarding management of hypertension and includes salt restriction. #3. Type II Hypercholesterolaemia: Currently taking medication and tolerating well. No interval complaints of any muscle pain or arthralgia. No significant liver changes with medications. Last lipid panel: excellent control. Therapy reviewed regarding treatment of cholesterol management and include diet and Lipitor. #4. Hx of esophageal reflux currently stable. Hx of Complications: none The severity, duration and intensity of symptoms have improved. Frequency: most meals Treatment consists medications taken on intermittent basis. Current therapy includes Omeprazole. There has been no nausea. No change in he frequency or intensity of symptoms. Has had no melena. Has had no . Discussed use of H2 antagonists and the possibility of trying to reduce the frequency of the use of any PPI inhibitors and try H2 antagonists to see if symptoms can be controlled with lease intensive therapy since a number of complications are associated with chronic prolonged use of PPI inhibitors. Wellness Evaluation PHQ-2 Score Last Two Weeks Last Two Weeks: 0: Not at all 1: Several Days 2: More than half 3: Almost Every day #1. Little interest or pleasure in doing things: Not At All :Score 0#2. Feeling down, depressed, or hopeless: Not At All :Score 0Score 0FAST Stage: 1 No functional decline Basic ADLS Ambulation Normal YesEating YesBed Transfer YesWalker NoCane NoFalls NoMultiple Falls NoBathing and Showering YesDressing YesFeeding YesFunctional Mobility YesPersonal Hygiene YesToilet Hygiene YesHome Safety Yes Instrumental ADLS House Work YesTaking Medications YesShopping YesTelephone YesUsing Technology YesTransportation YesPreparing Meals Yes Additional Topics Advanced Directives DeclinedLiving Will Declined Mini Mental Status Exam OrientationYear 1Season 1Month 1Date 1Day 1Score: 5 LocationCountry 1County 1City 1Facility 1Room 1Score: 5 RegistrationBall 1Car 1Man 1Score: 3 AttentionD 1L 1R 1O 1W 1Score: 5 RecallHouse 1Car 1Airplane 1Score: 3 LanguageWatch 1Pencil 1Score: 2 RepetitionNo ifs, ands or buts 1Score: 1 SentenceWrite a Sentence 1Score: 1 ReadingClose Eyes 1Score: 1 PentagonsCopy Design 0Score: 0 CommandHand 1Fold In Half 1Put Down 1Score: 3 Total Test Score: 29 /30 Normal Possible Functional ImpairmentActivities of Daily Living: Probably NormalCommunication: Probably NormalMemory: Probably Normal Social and Physical Activities Drinking History: NoneExercise 20 Minutes per Week: No, do not exercise muchDifficulty Driving Car: NoOther Problems: None,Falling,Orthostatic,Trou ble Eating,Teeth Denture Problems,Problems using Telephone,Tiredness or fatigue Smoking History Does not smokeCannabis History Does Not Use End Of Wellness Section Active Medication ListCalcium Carbonate DailyClonazepam .5 MG TABLET, ORALLY DISINTEGRATING As Needed For SeizuresOzempic WeeklyLipitor 10 MG (TABLET - ORAL) One DailyMeloxicam 15 MG TABLET One DailyAspirin 81 MG TABLET One DailyOmeprazole 20 MG CAPSULE, COATED PELLETS One DailyKeppra 1000 MG TABLET, FILM COATED 1500 Mg Am And 1500 Pm Adverse Drug Reactions ReviewedNo Known Adverse Drug Reactions! Vaccination and Immunization ( ) 2024-07 INFLUENZA( ) 2024-07 TDAP(X) 2015-06 PNEUMOVAX PREVNAR 20 Needed( ) 2014-10 PREVNAR 13 GC(X) 2020-12 COVID PFIZERImmunizations and Vaccinations Discussed and Implemented if feasible In the Office. Else referred to pharmacies. Surgical History 2022-11 Cystoscopy Endxcjokznio5561-31 Bladder Igfbzplgla1961-87 Appendectomy Preventative Testing ( ) 11/25/2024 Upper Endoscopy 11/25/2066( ) 11/25/2024 Colonoscopy 11/25/2034( ) 11/10/2024 Albumin 4.4 G/DL( ) 11/10/2024 HAIC 6.4 % H( ) 07/27/2024 Mammogram 07/27/2026( ) 06/28/2023 Micro Albumin 30.7 MG/L H(X) 06/22/2022 DEXA Scan ( 2 Years ) 06/22/2024( ) 05/17/2014 OphthalmologyPreventative Testing Discussed and Scheduled if Acceptable to Patient Social HistoryCategory DescriptionTobacco Hx Does not smokeAlcohol Hx Drinks sociallyBeveragesIllicit Drugs NoneOTC MedsOccupation Nursing instructorTravel HxSexual HxPregnancy Hx 2 Para 2 Aborta 0Family HistoryMother 86 with hx of ruptured cerebral aneurysm, HTN, ASHD, Atrial FibrillationFather : in 70's from ASHD and CHFSisters 1: HTN and High cholesterolBrothers 1: Living Aortic Valve Replacement. Cholesterol, RA, Renal cystsMenarche 11 Menopause 54 A0 TEST RESULT RANGE UNITSCBC/COMPLETE BLD COUNT W/DIFF Date: 11/10/2024WHITE BLOOD CELLS 4.7 4.2-10.8 X10'3/ULHEMOGLOBIN 13.1 12.0-15.6 G/DLHEMATOCRIT 38.6 35.7-45.7 %PLATELETS 186 150-400 X10'3/ULCOMPREHENSIVE METABOLIC PANEL Date: 11/10/2024SODIUM 139 137-145 MMOL/LPOTASSIUM 4.5 3.5-5.1 MMOL/LBUN 22 8-19 MG/DLCREATININE 0.72 0.66-1.25 MG/DLGFR >60GLUCOSE 93 70-99 MG/DLALKALINE PHOSPHATASE 86 38-126 U/LALANINE AMINOTRANSFERASE 29 0-35 U/LASPARTATE AMINOTRANSFERASE 37 15-37 U/LBILIRUBIN, TOTAL 0.90 0.20-1.30 MG/DLCALCIUM 9.4 8.4-10.2 MG/DLHEMOGLOBIN A1C Date: 11/10/2024HA1C 6.4 4.0-6.0 %LIPID PANEL Date: 11/10/2024HOLESTEROL 178 140-199 MG/DLTRIGLYCERIDES 180 0-150 MG/DLHDL CHOLESTEROL 58 40- MG/DLLDL CHOLESTEROL, CALCULATED 84 0-130 MG/DLT4 FREE Date: 11/10/2024FREE T4 0.98 0.78-2.19 NG/DLTSH Date: 11/10/2024THYROID-STIMULATING HORMONE 2.800 0.465-4.680 UIU/ML Jostin Wade MD [address] [facility] [facility] [address], [place], [address], [employer] 03/16/2025 11:31:10 04/15/20 25 text/htm l Patient is a 74-year-old female who presents to the office for complaints of pain to bilateral feet she states it is worse to her left foot she has bilateral pes planus worse to the left she had previous bunion correction with Lapidus procedure. Patient states that she has a painful callus under the sub 2nd metatarsal head of her left foot she denies any open wounds or injury. Patient states when she is standing or walking she has increased pain she has had custom orthotics built in the past she states that she would like new wounds as the original wounds she had have worn out. Patient denies any other complaints. Ranjeet Oscar DPM [address] [facility], [facility] [address], [place], [address], [employer] 04/15/2025 14:02:57 OBGyn Episode No OBEpisode recorded.
--- OUTSIDE RECORDS SUMMARY | 2025-04-26 10:13 | XMS_ITS | Referral Summary ---
Author Organization [facility] Address [address] [place] [address] Care Team Providers Care Geospatial Scientist Name Role Phone Luis Wade MD Primary Care Provider Ernesto Cruz MD Unavailable Zackery Lambert MD Unavailable [phone] Angela Penn RN Unavailable Encounters Date Type Department Care Team Description 04/12/2025 Telephone [facility] Epilepsy [address] [facility] 6[address] [place] [address] [place] [address] Luis Woodson MD PhD Seizures from Last 3 Months Allergies No known [...] apnea. Paroxysmal atrial fibrillation 09/24/2022 Overview (10/22/2023): [id number] Score = 2 - on Xarelto Assessment & Plan (10/15/2024 3:28 PM ROPE TOW OPERATOR): Regular on exam. [id number] of 3, now age 74. She has [...] 09/13/2021 Assessment & Plan (10/15/2024 3:28 PM ROPE TOW OPERATOR): FLP when able. Lipitor 10 mg daily. [...] on file Legal Sex Female 8:25 AM ROPE TOW OPERATOR Gender Identity Not on file Sexual Orientation Straight 11/10/2021 10 :21 AM ROPE TOW OPERATOR Last Filed Vital Signs Vital Sign Reading Time Taken Comments Blood Pressure 138/86 01/18/2025 7:53 AM CDT Pulse 76 01/18/2025 7:53 AM CDT Temperature 36.6 C (97.8 F) 06/15/2024 5:42 PM CDT Respiratory Rate 16 06/15/2024 5:42 PM CDT Oxygen Saturation 97% 10/15/2024 1:22 PM ROPE TOW OPERATOR Inhaled Oxygen Concentration - - Weight 91.4 kg (201 lb 9.6 oz) 01/18/2025 7:53 A M CDT Height 170.2 cm (5' 7) 01/18/2025 7:53 AM CDT Body Mass Index 31.58 01/18/2025 7:53 AM CDT Plan of Treatment Not on file Procedures Procedure Name Priority Date/Time Associated Diagnosis Comments HEPATITIS C ANTIBODY Routine 08/30/2023 9:01 PM ROPE TOW OPERATOR from Last 3 Months or Most Recently Relevant to Health Maintenance Results * Hepatitis C antibody Blood (08/30/2023 9:01 PM ROPE TOW OPERATOR) Hep C Ab Nonreactive Nonreactive [facility] Comment:Antibodies to HCV no t detected. Does NOT exclude the possibility of recent exposure to HCV. Current interpretive data was last revised on 22 Blood 08/30/2023 9:01 PM ROPE TOW OPERATOR 08/30/2023 9:06 PM ROPE TOW OPERATOR Nnamdi Kennedy MD LAB MICROBIOLOGY - GENERAL ORDERABLES Final Result [facility] [place] [address] from Last 3 Months or Most Recently Relevant to Health Maintenance Insurance [employer] MED[employer]ARE UHC MEDICARE ADVANTAGE [employer] MEDICARE Advance Directives For more information, please contact: [phone] * Full Code (Latest Code Status on File) Date Activated Date Inactivated Comments 08/30/2023 4:54 PM 09/02/2023 6:44 PM Care Teams Geospatial Scientist Relationship Specialty Start Date End Date Luis Wade MD [address] [facility] [address] [address] PCP - General Internal Medicine 11/14/21 Ernesto Cruz MD [address] [place] [address] Consulting Physician Cardiovascular Disease 08/20/23 Zackery Lambert MD [address] [place] [address] [facility] 10/17/23 Angela Penn, RN [address] [address] Heart Failure Coordinator Consultant In Ergonomics And Safety 10/17/23
== END 2025-04-26 10:00 | disposition home or self-care (01) ==
PROVIDERS: PCP Internal Medicine; Visit Provider Internal Medicine
DX: M81.0 Age-related osteoporosis without current pathological fracture (principal); M85.852 Other specified disorders of bone density and structure, left thigh; M85.851 Other specified disorders of bone density and structure, right thigh
CPT/HCPCS: 77080